=== PATIENT | female | born 1960 | race African-American/Black ===

== ENCOUNTER 2016-08-06 18:58 | Observation (INO) | payer MEDICARE, OTHER ==
[~2016-08-06] VITALS: Ht 162.6 cm; Wt 115.0 kg
[~2016-08-06 18:58] MED LIST: ADULT ASA81 MG OR; ADVAIR DISKU INH; ALL DAY10 MG PO; ALLEGRA180 MG PO; AMARYL2 MG OR; AMBIEN10 MG PO; AMBIEN5 MG OR; AMLODIPINE10 MG PO; AMOXICILLIN875 MG PO; ASPIR-8181 MG OR; ASPIRIN EC81 MG PO; ASPIRIN81 MG OR; AUGMENTIN250 MG PO; AUGMENTIN500TAB PO; AZATHIOPRINE50 MG; CARISOPRODOL350 MG PO; CIPRO500 MG PO; CLONIDINE HCL0.2 MG PO; CLONIDINE0.2 MG OR; COREG12.5 MG OR; COREG25 MG OR; COUMADIN5 MG PO; CYMBALTA60 MG OR; CYMBALTA60 MG PO; DAILY-VITE1 TAB PO; DECADRON2 MG OR; DEXAMETHASON4 MG OR; DILAUDID 2MG2 MG/TAB OR; DILAUDID4 MG OR; DURAGESIC75 MCG/HR TD; ENALAPRIL20 MG OR; FLONASE NASAL50 MCG; FLOXIN OTIC OT; FOLIC ACID1 MG PO; HISTORIAN; LASIX; LASIX 80 MG TAB80 MG OR; LASIX40 MG OR; LASIX80 MG OR; LOPRESSOR100 MG OR; LORTAB 10 OR; LORTAB 5 OR; LORTAB5 OR; LORTAB5 PO; LYRICA75 MG OR; Levaquin PO; MEDDOSEPAK PO; METOPROLOL50 MG OR; MIDODRINE HCL10 MG PO; MINOXIDIL10 MG OR; NEURONTIN300 MG OR; NIFEDIPINE30 M1 OR; NIFEDIPINE90 MG OR; NITRO-DUR0.4 MG/HR TD; NITROQUICK0.4 MG SL; NORVASC10 M1 PO; NORVASC10 MG OR; OXYCOD/APAP1 TA4 PO; OXYCODONE10 M2 OR; OXYGEN; OXYGEN NAS; PATANOL0.1 % OP; PENICILLN VK500 MG OR; PERCOCET 5/325M1 TAB OR; PERCOCET1 TA4 PO; PLAVIX75 MG OR; PROCARDIA XL90 MG OR; PROVENTIL INH17 GM IN; PROVENTIL0.083 % IN; RANITIDINE150 MG PO; RENAGEL 800MG800 MG PO; RENAGEL800 MG OR; RENAL OR; SINGULAIR OR; SOMA350 MG OR; TRAMADOL HCL50 MG PO; ULTRAM50 MG OR; VITAMIN D2000 UNI2 PO; XANAX0.5 MG OR; XANAX2 MG OR; XANAX2 MG PO; ZITHROMAX250 MG OR; ZOLPIDEM10 MG PO; [UNRECOGNIZED DRUG - OTHER] OR; [UNRECOGNIZED DRUG - OTHER] OR; [UNRECOGNIZED DRUG - REMARK]; dilaudid OR
--- NOTE | 2016-08-06 19:05 | NUR ---
PT TO ROOM 13 VIA WHEELCHAIR.
[2016-08-06 20:16] LABS: HEMATOCRIT 36.4 % (37.0-47.0); HEMOGLOBIN 11.6 g/dl (12.0-16.0); IMMATURE GRANULOCYTES 0.2 % (0.0-1.0); MEAN CELL VOLUME 98.1 fL CALC (80.0-100.0); MEAN CORPUSCULAR HGB 31.3 pG CALC (26.0-32.0); MEAN CORPUSCULAR HGB CONC 31.9 g/L CALC (32.0-36.0); NEUT# 1.88 thou/uL (2.00-7.15); RED BLOOD COUNT 3.71 mill/uL (4.20-5.60); RED CELL DISTRI WIDTH 15.1 % (11.5-15.5)
[2016-08-06 20:36] LABS: ALBUMIN 4.1 g/dL (3.2-5.0); BILIRUBIN, TOTAL 0.8 mg/dL (0.0-1.4); CALCIUM 9.3 mg/dL (8.4-10.2); CREATININE 4.7 mg/dL (0.5-1.0); POTASSIUM 4.2 mmol/l (3.5-5.1); TOTAL PROTEIN 8.5 g/dL (6.3-8.2)
--- NOTE | 2016-08-06 20:50 | NUR ---
REMAINS A/O X3 ADVISED OF PENDING DX STUDIES.PT IS CALLING VARIOUS FAMILY AND FRIENDS ON HER CELL PHONE AND IN NO DISTRESS.
[2016-08-06 21:35] LABS: INTERNATIONAL NORMALIZED RATIO 0.9 RATIO (0.7-1.3); PROTHROMBIN TIME 10.1 SECONDS (9.0-12.5)
--- NOTE | 2016-08-06 22:10 | NUR ---
REPORT TO NURSE MAYORGA
--- NOTE | 2016-08-06 22:32 | NUR ---
TO FLOOR VIA STRETCHER PT REMAINS A/OX3
--- NOTE | 2016-08-06 22:37 | NUR ---
DR Argueta INFORMED OF PHARM RECOMMENDATION FOR LOVENOX DOSAGE
[2016-08-06 22:50] VITALS: BP 93/61
--- NOTE | 2016-08-06 22:50 | NUR ---
RECEIVED FROM ER VIA STRETCHER ACCOMPANIED BY BELA RN. TRANSFERRING SELF FROM STRETCHER TO BED WITH ASSISTANCE, STATES "I CANT GET UP" ADMITS TO USING WALKER AT HOME AND BEING DISCHARGED FROM [facility] IN [place] ON Saturday08/05/16, LIVES BY HERSELF. IV SITE FROM A DIFFERENT FACILYTY TO RW, PT STATES IT IS USED FOR [place] IV ABT TRANSFUSION BY [facility] NURSE, AND WAS SENT TO THE ER DUE TO PERIPHERAL SITE BEING OCCLUDED. ER NURSE BELA RN STATES SITE WAS INSTILLED WITH CATHFLOW. DIALYSIS CATHETER TO LEFT SUBCLAVIAN. IV SITE #22 TO LEFT WRIST WITH 1/2NS STARTED AT 50CC/HR. A/O X3, RESPIRATIONS EVEN AND UNLABORED ON O2 @2L VIA NC, PT STATES SHE USES OXYGEN AT 2L VIA NC AT HOME AT . IS A POOR HYSTORIAN, NOT ABLE TO SAY REASON FOR IV ABT'S. DRESSING TO LEFT UPPER THIGH REMOVED TO OBTAIN PICTURES REFUSES TO HAVE PACKING REMOVED FROM OPEN AREA, TWO SITES TO SURROUNDING SKIN NOTED TO HAVE SUTURES, PT STATES REASON FOR WOUND IS DUE TO "DIALYSIS PORT BURST IN APRIL" THEN SENT TO REHAB FOR 30DAYS. SKIN TO FEET IS DRY AND SCALY. ORIENTED TO BED CONTROLS AND CALL LIGHT. PO FLUIDS IN REACH.
--- NOTE | 2016-08-07 00:39 | NUR ---
C/O PAIN TO RIGHT HIP 11/01, MEDICATED WITH DILAUDID 1MG IV X1 AND RESTORIL 30MG PO PER 'S ORDERS.
[2016-08-07 05:30] VITALS: BP 109/76
--- NOTE | 2016-08-07 05:30 | NUR ---
MORNING BLOOD WORK DRAWN BY WAREHOUSE ATTENDANT, [employer].
[2016-08-07 06:20] LABS: HEMATOCRIT 31.7 % (37.0-47.0); HEMOGLOBIN 9.9 g/dl (12.0-16.0); IMMATURE GRANULOCYTES 0.3 % (0.0-1.0); MEAN CELL VOLUME 101.3 fL CALC (80.0-100.0); MEAN CORPUSCULAR HGB 31.6 pG CALC (26.0-32.0); MEAN CORPUSCULAR HGB CONC 31.2 g/L CALC (32.0-36.0); NEUT# 1.25 thou/uL (2.00-7.15); RED BLOOD COUNT 3.13 mill/uL (4.20-5.60); RED CELL DISTRI WIDTH 15.2 % (11.5-15.5)
[2016-08-07 06:37] LABS: ALBUMIN 3.6 g/dL (3.2-5.0); BILIRUBIN, TOTAL 0.8 mg/dL (0.0-1.4); CALCIUM 9.1 mg/dL (8.4-10.2); POTASSIUM 4.5 mmol/l (3.5-5.1); TOTAL PROTEIN 7.1 g/dL (6.3-8.2)
[2016-08-07 06:39] LABS: INTERNATIONAL NORMALIZED RATIO 0.9 RATIO (0.7-1.3); PROTHROMBIN TIME 10.1 SECONDS (9.0-12.5)
[2016-08-07 06:51] LABS: CREATININE 5.9 mg/dL (0.5-1.0)
--- NOTE | 2016-08-07 07:00 | NUR ---
REPORT RECIEVED FROM ZOLTAN MAYORGA; PT RESTING IN BED PEACEFULLY; C/O PAIN RATING 10 OUT OF 10 WITH NO VISIBLE DISTRESS NOTED; IVF INFUSING AT PRESCRIBED RATE; WILL MEDICATE WHEN MEDICATIONS AVAILABLE
[2016-08-07 07:49] VITALS: BP 81/40
--- NOTE | 2016-08-07 11:28 | NUR ---
PT SITTING UP IN BED; NO S/S OF DISTRESS NOTED; PT STATES PAIN IS IMPROVED AT THIS TIME; FAMILY AT BEDSIDE; IVF INFUSING AT PRESCRIBED RATE; CALL LIGHT WITHIN REACH; WILL CONTINUE TO MONITOR
--- NOTE | 2016-08-07 16:00 | NUR ---
PT RESTING IN BED WITH EYES CLOSED; NO S/S OF DISTRESS NOTED; FALL PRECAUTIONS IN PLACE; CALL LIGHT WITHIN REACH; WILL CONTINUE TO MONITOR
[2016-08-07 16:20] VITALS: BP 110/51
[2016-08-07 20:05] VITALS: BP 101/62
--- NOTE | 2016-08-07 21:09 | NUR ---
NOTIFED OF PT REQUEST FROM PAIN MEDICATION FOR RT HIP AND RT.FLANK PAIN;NEW ORDERS RECEIVED AT THIS TIME
--- NOTE | 2016-08-07 22:20 | NUR ---
PT RESTING IN SEMI FOWLERS POSITION;PT STATES THAT SINCE HER FRIEND LEFT SHE IS READY FOR HER PAIN MEDICATION AND SLEEPING MEDICATION;IV SITE TO LEFT WRIST AND MEDLINE TO RT WRIST FLUSHED AND PATENT;PT ON CONTACT PRECAUTIONS FOR ESBL OF THE INNER LEFT GROIN;PRIOR FISTULA FROM DIALYSIS REMOVED LAST WEEK;PT REFUSES DRESSING CHANGE AT THIS TIME;ASSESSMENT COMPLETED;GENERALIZED DRY SKIN NOTED THROUGHOUT;PT DENIES ANY OTHER NEEDS;SAFETY PRECAUTIONS REINFORCED;BED IN LOWEST POSITION WITH CALL LIGHT IN REACH;WILL CONTINUE TO MONITOR
--- NOTE | 2016-08-08 00:15 | NUR ---
PT RESTING IN HIGH FOWLERS POSITION;PT STATES THAT PAIN IS BETTER;RESPIRATIONS EVEN AND UNLABORED ON 02 @ 2 LITERS VIA NC;FALL AND CONTACT PRECAUTIONS IN PLACE;PT DENIES ANY NEEDS AT THIS TIME;CALL LIGHT WITHIN REACH;WILL CONTINUE TO MONITOR
[2016-08-08 04:55] VITALS: BP 88/52
--- NOTE | 2016-08-08 04:55 | NUR ---
PT APPEARS TO BE SLEEPING AT THIS TIME;WOKE PT TO OBTAIN VS;PT DENIES ANY PAIN OR DISCOMFORTS;RESPIRATIONS EVEN AND UNLABORED ON 02 @ 2 LITERS VIA NC;PT DENIES ANY NEEDS;CONTACT PRECAUTIONS IN PLACE;BED IN LOWEST POSITION WITH CALL LIGHT IN REACH;WILL CONTINUE TO MONITOR
--- NOTE | 2016-08-08 07:00 | NUR ---
RECEIVED BEDSIDE REPORT FROM ZANE CHARLTON. RESPS EVEN AND UNLABORED ON O2 VIA NC. PT REPORTS SHE NEEDS TO GO TO DIALYSIS TODAY. DENIES PAIN OR DISCOMFORT. PLAN OF CARE DISCUSSED. SAFETY PRECAUTIONS REINFORCED. BED IN LOWEST POSITION WITH WHEELS LOCKED. CALL LIGHT WIHTIN REACH. ENCOURAGED PT TO CALL FOR ANY NEEDS.
--- NOTE | 2016-08-08 08:00 | NUR ---
DR BANERJEE IN TO SEE PT, NEW ORDERS RECEIVED.
[2016-08-08 08:26] VITALS: BP 98/64
[2016-08-08 10:20] VITALS: BP 98/64
--- NOTE | 2016-08-08 12:01 | NUR ---
NURSE TO NURSE REPORT CALLED TO XI VALE AT [facility].
--- NOTE | 2016-08-08 12:45 | NUR ---
Discharge instructions given. Patient verbalizes understanding of same. Discharged in stable condition via Medical Transport to *Other with *Other. All belongings sent with pt. TO [facility]SP[facility]
== END 2016-08-08 12:44 ==
LOC: ED 18:58 → ED-I 19:25 → ED 21:20 → MS2 21:21
PROVIDERS: Emergency Medicine; ADMIT Internal Medicine Geriatric Medicine; ATTEND Internal Medicine Geriatric Medicine
DX: K75.9 Inflammatory liver disease, unspecified (principal); K82.8 Other specified diseases of gallbladder; K83.9 Disease of biliary tract, unspecified; T82.7XXA Infection and inflammatory reaction due to other cardiac and vascular devices, implants and grafts, initial encounter; E11.22 Type 2 diabetes mellitus with diabetic chronic kidney disease; I13.2 Hypertensive heart and chronic kidney disease with heart failure and with stage 5 chronic kidney disease, or end stage renal disease; F17.210 Nicotine dependence, cigarettes, uncomplicated; N18.6 End stage renal disease; I50.9 Heart failure, unspecified; Z99.2 Dependence on renal dialysis; J45.909 Unspecified asthma, uncomplicated; R10.2 Pelvic and perineal pain; R07.9 Chest pain, unspecified; G89.29 Other chronic pain; R42 Dizziness and giddiness; Y83.2 Surgical operation with anastomosis, bypass or graft as the cause of abnormal reaction of the patient, or of later complication, without mention of misadventure at the time of the procedure; Z87.440 Personal history of urinary (tract) infections; Z86.73 Personal history of transient ischemic attack (TIA), and cerebral infarction without residual deficits
CPT/HCPCS: J1335; J2997

== ENCOUNTER 2016-12-03 18:18 | Emergency (ER) | payer MEDICARE, OTHER ==
[~2016-12-03] VITALS: Ht 162.6 cm; Wt 119.0 kg
[2016-12-03] MEDS ORDERED: MIDODRINE10 MG PO (18:51)
[2016-12-03 20:36] LABS: HEMATOCRIT 42.6 % (37.0-47.0); HEMOGLOBIN 13.6 g/dl (12.0-16.0); IMMATURE GRANULOCYTES 0.2 % (0.0-1.0); MEAN CELL VOLUME 98.4 fL CALC (80.0-100.0); MEAN CORPUSCULAR HGB 31.4 pG CALC (26.0-32.0); MEAN CORPUSCULAR HGB CONC 31.9 g/L CALC (32.0-36.0); NEUT# 2.71 thou/uL (2.00-7.15); RED BLOOD COUNT 4.33 mill/uL (4.20-5.60); RED CELL DISTRI WIDTH 14.3 % (11.5-15.5)
[2016-12-04 06:38] VITALS: BP 126/65
== END 2016-12-04 03:25 ==
LOC: ED 18:18
PROVIDERS: Emergency Medicine
DX: R07.9 Chest pain, unspecified (principal); J45.909 Unspecified asthma, uncomplicated; E11.22 Type 2 diabetes mellitus with diabetic chronic kidney disease; I12.0 Hypertensive chronic kidney disease with stage 5 chronic kidney disease or end stage renal disease; N18.6 End stage renal disease; F17.210 Nicotine dependence, cigarettes, uncomplicated; Z99.2 Dependence on renal dialysis; Z86.73 Personal history of transient ischemic attack (TIA), and cerebral infarction without residual deficits

== ENCOUNTER 2017-01-09 12:36 | Emergency (ER) | payer MEDICARE, OTHER ==
[~2017-01-09] VITALS: Ht 162.6 cm; Wt 113.0 kg
[~2017-01-09 12:36] MED LIST changes: +MIDODRINE10 MG PO
[2017-01-09 13:51] LABS: HEMATOCRIT 41.1 % (37.0-47.0); HEMOGLOBIN 13.7 g/dl (12.0-16.0); IMMATURE GRANULOCYTES 0.5 % (0.0-1.0); MEAN CELL VOLUME 96.5 fL CALC (80.0-100.0); MEAN CORPUSCULAR HGB 32.2 pG CALC (26.0-32.0); MEAN CORPUSCULAR HGB CONC 33.3 g/L CALC (32.0-36.0); NEUT# 3.75 thou/uL (2.00-7.15); RED BLOOD COUNT 4.26 mill/uL (4.20-5.60); RED CELL DISTRI WIDTH 14.6 % (11.5-15.5)
[2017-01-09 14:25] LABS: ALBUMIN 4.3 g/dL (3.2-5.0); BILIRUBIN, TOTAL 0.7 mg/dL (0.0-1.4); CALCIUM 9.5 mg/dL (8.4-10.2); POTASSIUM 4.3 mmol/l (3.5-5.1); TOTAL PROTEIN 8.1 g/dL (6.3-8.2)
[2017-01-09 14:31] LABS: CREATININE 6.5 mg/dL (0.5-1.0)
[2017-01-09] MEDS ORDERED: PERCOCET 10/31 COMBO PO (14:40)
[2017-01-09] MEDS ORDERED: TYLENOL 500MG TAB PO (14:40)
[2017-01-09 15:22] VITALS: BP 100/56
== END 2017-01-09 15:45 | disposition left against medical advice (07) ==
LOC: ED 12:36
PROVIDERS: Emergency Medicine
DX: R42 Dizziness and giddiness (principal); R55 Syncope and collapse; R07.9 Chest pain, unspecified; I95.9 Hypotension, unspecified; J45.909 Unspecified asthma, uncomplicated; E11.22 Type 2 diabetes mellitus with diabetic chronic kidney disease; I13.2 Hypertensive heart and chronic kidney disease with heart failure and with stage 5 chronic kidney disease, or end stage renal disease; N18.6 End stage renal disease; I50.9 Heart failure, unspecified; F17.210 Nicotine dependence, cigarettes, uncomplicated; Z99.2 Dependence on renal dialysis; Z86.73 Personal history of transient ischemic attack (TIA), and cerebral infarction without residual deficits; Z91.19 Patient's noncompliance with other medical treatment and regimen

== ENCOUNTER 2017-07-08 16:40 | Inpatient (IN) | payer MEDICARE, OTHER ==
[~2017-07-08] VITALS: Ht 162.6 cm; Wt 127.0 kg
[~2017-07-08 16:40] MED LIST changes: +PERCOCET 10/31 COMBO PO; +TYLENOL 500MG TAB PO
--- NOTE | 2017-07-08 17:05 | NUR ---
PATIENT TO ROOM VIA EMS AND PHYSICIAN AT BEDSIDE FOR EVAL
[2017-07-08 17:56] LABS: HEMATOCRIT 40.8 % (37.0-47.0); HEMOGLOBIN 13.3 g/dl (12.0-16.0); IMMATURE GRANULOCYTES 0.3 % (0.0-1.0); MEAN CELL VOLUME 98.3 fL CALC (80.0-100.0); MEAN CORPUSCULAR HGB CONC 32.6 g/L CALC (32.0-36.0); NEUT# 4.51 thou/uL (2.00-7.15); RED BLOOD COUNT 4.15 mill/uL (4.20-5.60); RED CELL DISTRI WIDTH 15.9 % (11.5-15.5)
--- NOTE | 2017-07-08 18:13 | NUR ---
PATIENT UNABLE TO TAKE MORPHINE, REPORTS BODYACHES. REFUSED MEDICATION. MD INFORMED, NO FURTHER ORDERS FROM . WILL CONTINUE TO MONITOR.
[2017-07-08 18:29] LABS: INTERNATIONAL NORMALIZED RATIO 2.5 RATIO (0.7-1.3); PROTHROMBIN TIME 28.3 SECONDS (9.0-12.5)
--- NOTE | 2017-07-08 18:36 | NUR ---
PATIENT REPOSITIONED ON RIGHT SIDE WITH PILLOW UNDER LEGS. WARM BLANKET GIVEN.
--- NOTE | 2017-07-08 18:51 | NUR ---
BEDSIDE REPORT GIVEN TO KAVIN SALDANA. CARE RELINQUISHED.
--- NOTE | 2017-07-08 18:55 | NUR ---
report recieved from Piper VALE @ bedside.
--- NOTE | 2017-07-08 19:31 | NUR ---
Pt medicated with Xanax 2 mg p.o., advised pt that will return in 5 minutes to evaluate condition and possibly give ordered morphine for pain.
[2017-07-08 19:55] LABS: POTASSIUM 3.9 mmol/l (3.5-5.1)
[2017-07-08 19:57] LABS: CREATININE 7.1 mg/dL (0.5-1.0)
--- NOTE | 2017-07-08 19:58 | NUR ---
Pt medicated with Percocet
--- NOTE | 2017-07-08 20:13 | NUR ---
RECHECK OF PT. STATES THAT SHE IS STILL HAVING SOME PAIN. SEEMS TO BE RESTING COMFORTABLY AT THIS TIME.
[2017-07-08 21:35] VITALS: BP 102/68
--- NOTE | 2017-07-08 21:44 | NUR ---
transported to floor with tele box on to room 290.
--- NOTE | 2017-07-08 22:00 | NUR ---
PATIENT ADMITTED FROM ER VIA STRETCHER WITH ER STAFF IN ATTENDANCE. PATIENT STATES THAT SHE IS NOT ABLE TO STAND. PATIENT MAX ASSIST FROM STRETCHER TO BED. PATIENT IS AWAKE ALERT AND ORIENTED, ANXIOUS-STATES THAT SHE IS STILL IN SEVERE PAIN- GENERALIZED PAIN NIKO HIPS AND FEET. PATIENT IS ESRD PATIENT CURRENTLY ON H/D AND HAD TREATMENT DONE TODAY. AFTER GOING HOME FROM DAILYSIS PATIENT STATES THAT SHE WAS HAVING SEVERE PAIN TO BOTH HIPS AND BLE AND CALLED 911. PATIENT STATES THAT SHE LIVES WITH FAMILY. PATIENT WITH EXT DIALYSIS CATH TO LEFT UPPER CHEST. PATIENT STATES THAT SHE HAS HAD SEVERAL AV FISTULA'S THAT HAVE GONE BAD. SKIN IS VERY DRY AND FLAKEY. HEP LOCK TO RIGHT WRIST INTACT. DIFFICULTY IN OBTAINING BP-FINALLY DONE TO RIGHT LE-102/68. O2 APPLIED AT 2LPM VIA NASAL CANNULA-STATES THAT SHE DOES USE O2 AT HOME. PATIENT ALSO C/O CONSTIPATION-NO BM IN 5-6 DAYS. ABD IS VERY LARGE AND SOFT-BS PRESENT. STATES THAT SHE RARELY HAS ANY URINE. ORIENTED TO ROOM AND SURROUNDINGS. INSTRUCTED ON USE OF NURSE CALL LIGHT SYSTEM AND TV REMOTE. BOTH FEET ELEVATED ON PILLOWS FOR COMFORT. CALL LIGHT IN REACH. WILL CONT TO MONITOR.
--- NOTE | 2017-07-08 23:15 | NUR ---
PATIENT RESTING IN BED EATING SNACK AND JUICE PROVIDED. ACCU-CHECK PRIOR TO FOOD WAS 121. PATIENT MEDICATED FOR SLEEP WITH DILAUDID 0.5MG IVP FOR PAIN AND WITH SONATA 5MG PO FOR SLEEP. PATIENT SEEMS TO BE CALMING DOWN AT THIS TIME. SAFETY PRECAUTIONS REINFORCED. CALL LIGHT IN REACH.
[2017-07-09] VITALS (8 sets, daily range): BP systolic 73–109; BP diastolic 38–58
--- NOTE | 2017-07-09 | NUR ---
PATIENT WITH SOME RELIEF FROM PAIN MEDS GIVEN EARLIER-8/10 ON PAIN SCALE. TROP DRAWN DRAWN ORDERED. WATCHING TV AT THIS TIME. CALL LIGHT IN REACH. WILL CONT TO MONITOR.
[2017-07-09 06:08] LABS: HEMATOCRIT 36.1 % (37.0-47.0); HEMOGLOBIN 11.6 g/dl (12.0-16.0); IMMATURE GRANULOCYTES 0.3 % (0.0-1.0); MEAN CELL VOLUME 101.4 fL CALC (80.0-100.0); MEAN CORPUSCULAR HGB 32.6 pG CALC (26.0-32.0); MEAN CORPUSCULAR HGB CONC 32.1 g/L CALC (32.0-36.0); NEUT# 3.82 thou/uL (2.00-7.15); RED BLOOD COUNT 3.56 mill/uL (4.20-5.60); RED CELL DISTRI WIDTH 16.1 % (11.5-15.5)
[2017-07-09 06:17] LABS: POTASSIUM 4.7 mmol/l (3.5-5.1)
[2017-07-09 06:20] LABS: CREATININE 8.4 mg/dL (0.5-1.0)
[2017-07-09 06:21] LABS: INTERNATIONAL NORMALIZED RATIO 2.5 RATIO (0.7-1.3); PROTHROMBIN TIME 28.9 SECONDS (9.0-12.5)
--- NOTE | 2017-07-09 06:24 | NUR ---
RECIEVED CALL FROM [facility] IN THE LAB-CREAT-8.4. PATIENT ESRD PATIENT THAT HAD H/D YESTERDAY. AWARE OF PATIENT STATUS
--- NOTE | 2017-07-09 07:00 | NUR ---
BEDSIDE REPORT RECEIVED BY LINDA. PT IS RESTING IN BED WITH NO S/S OF DISTRESS NOTED. PT DENIES NEEDS AT THIS TIME. CALL LIGHT IN REACH.
--- NOTE | 2017-07-09 08:00 | NUR ---
ASSESSMENT DONE. LUNG SOUND CLEAR/DIMINISHED. O2 AT 2L/MIN VIA NC. # 20 RW THAT APPEAR HEALTHY. PT DENIES NEEDS AT THIS TIME. SAFETY PRECAUTIONS REINFORCED AND CALL LIGHT IN REACH.
--- NOTE | 2017-07-09 12:02 | NUR ---
PT IS SEMI FOWLERS IN BED WITH NO S/S OF DISTRESS NOTED. PT IS VISITING WITH FAMILY IN ROOM. PT DENIES NEEDS AT THIS TIME. CALL LIGHT IN REACH.
--- NOTE | 2017-07-09 14:21 | NUR ---
MEDICATED PT FOR PAIN SEE EMAR. ELEVATED PT LEGS IN PILLOWS. PT DENIES ANY OTHER NEEDS AT THIS TIME. CALL LIGHT IN REACH.
--- NOTE | 2017-07-09 16:00 | NUR ---
O2 2L/MIN VIA NC AND TELE IN PLACE. PT IS RESTING IN BED WITH NO S/S OF DISTRESS NOTED. PT DENIES NEEDS AT THIS TIME. CALL LIGHT IN REACH.
--- NOTE | 2017-07-09 17:27 | NUR ---
[facility] SAWYER RELAYED CONCERNS REGARDING PT'S CAPABILITY OF PARTICIPATING IN THERAPY AT THE LEVEL REQUIRED FOR THEIR FACILITY. ASKS TO BE NOTIFIED IF ANYTHING CHANGES REGARDING PT AND SHE MAY BE RE-EVALUATED.
--- NOTE | 2017-07-09 19:40 | NUR ---
PT RESTING IN BED. FAMILY IN ROOM. PT IS ALERT AND ORIENTED X3. PERRLA. RESP ARE EVEN AND UNLABORED. NO DISTRESS NOTED. LUNGS ARE CLEAR AND DIMINISHED THROUGHOUT. TELE IN PLACE. HR REGULAR. PULSES PALPABLE THROUGHOUT. BS ACTIVE. #20 RIGHT WRIST. SALINE LOCKED. NO REDNESS OR EDEMA NOTED. CALL LIGHT IN REACH. WILL CONTINUE TO MONITOR
--- NOTE | 2017-07-10 | NUR ---
PT RESTING IN BED WITH EYES CLOSED. RESP ARE EVEN AND UNLABORED. NO DISTRESS NOTED. GRANDDAUGHTER IN ROOM. CALL LIGHT IN REACH. WILL CONTINUE TO MONITOR
[2017-07-10 00:30] VITALS: BP 79/52
--- NOTE | 2017-07-10 04:13 | NUR ---
lab into draw am labs. resp are even and unlabored. no distress noted. call light in reach. will continue to monitor
[2017-07-10 04:30] VITALS: BP 91/57
[2017-07-10 05:34] LABS: MAGNESIUM 1.9 mg/dL (1.6-2.3)
[2017-07-10 05:44] LABS: CREATININE 10.4 mg/dL (0.5-1.0)
[2017-07-10 05:49] LABS: HEMATOCRIT 36.6 % (37.0-47.0); HEMOGLOBIN 11.7 g/dl (12.0-16.0); IMMATURE GRANULOCYTES 0.2 % (0.0-1.0); MEAN CELL VOLUME 103.1 fL CALC (80.0-100.0); NEUT# 2.69 thou/uL (2.00-7.15); RED BLOOD COUNT 3.55 mill/uL (4.20-5.60); RED CELL DISTRI WIDTH 15.9 % (11.5-15.5)
[2017-07-10 05:50] LABS: INTERNATIONAL NORMALIZED RATIO 2.5 RATIO (0.7-1.3); PROTHROMBIN TIME 28.2 SECONDS (9.0-12.5)
--- NOTE | 2017-07-10 06:55 | NUR ---
REPORT RECEIVED FROM KAVIN MERINO;PT RESTING IN HIGH FOWLERS POSITION;INTRODUCED SELF TO PT AND POC DISCUSSED;RESPIRATIONS EVEN AND UNLABORED ON 02 @ 2L VIA NC,PT IS NOTED TO BE HOME DEPENDENT;DENIES ANY PAIN OR DISCOMFORTS;TELE MONITOR IN PLACE;ENCOURAGED TO EXPRESS NEEDS AND CONCERNS;CONTACT PRECAUTIONS IN PLACE FOR HX OF MRSA;FALL PRECAUTIONS;CALL LIGHT IN REACH;WILL CONTINUE TO MONITOR
[2017-07-10 07:53] VITALS: BP 100/50
--- NOTE | 2017-07-10 08:00 | NUR ---
PT RESTING IN SEMI FOWLERS POSITION WITH FAMILY AT BEDSIDE;VS OBTAINED AND ASSESSMENT COMPLETED;RESPIRATIONS EVEN AND UNLABORED ON OXYGEN @ 2L VIA NC,PT IS HOME DEPENDENT;ABDOMEN SOFT ON PALPATION AND ACTIVE IN ALL 4 QUADRANTS;WEAK PEDAL PULSES;SKIN INTACT;#20G TO RIGHT WRIST FLUSHED AND PATENT,SITE APPEARS HEALTHY;PT COMPLAINS OF BILATERAL LEG PAIN RATING 8/10 ON THE PAIN SCALE;PT TO BE MEDICATED PER MD ORDERS;CONTACT PRECAUTIONS REMAIN IN PLACE FOR HX OF MRSA;ALL SAFETY PRECAUTIONS REINFORCED WITH BED IN THE LOWEST POSITION;CALL LIGHT IN REACH;WILL CONTINUE TO MONITOR
--- NOTE | 2017-07-10 08:20 | NUR ---
PT AMBULATED WITH 3 PERSON ASSIST AND WEAK GAIT TO BEDSIDE COMMODE
[2017-07-10] MEDS ORDERED: PANTOPRAZOLE SO40 M1 PO (08:45)
--- NOTE | 2017-07-10 09:47 | NUR ---
PT WAS SEEN RESTING IN THE BED. STATES THAT SHE COULD NOT PARTICIPATE WITH THERAPY TODAY HER PAIN WAS INTOLERABLE AND MOVING MAKES IT WORSE. ALSO DECLINED PROM ACTIVITIES.
[2017-07-10 11:00] VITALS: BP 78/34
--- NOTE | 2017-07-10 11:00 | NUR ---
PT RESTING IN SUPINE POSITION WITH MIRIAM,CASE MANAGEMENT AT BEDSIDE;PT AND CHIKI DISCUSSED TRANSFER TO [facility];ALL QUESTIONS ANSWERED AND RE-ASSURANCE PROVIDED;PT DENIES ANY CURRENT NEEDS;ENCOURAGED TO CALL FOR ASSISTANCE IF NEEDED;CALL LIGHT IN REACH;WILL CONTINUE TO MONITOR
--- NOTE | 2017-07-10 11:35 | NUR ---
PT LEFT VIA STRETCHER ACCOMPANIED BY [facility] STAFF TO [facility]
--- NOTE | 2017-07-10 12:05 | NUR ---
REPORT CALLED TO KAVIN HOFFMANN;PT TO BE TRANSFERRED TO ROOM 305 BED 1
== END 2017-07-10 11:38 | DRG 314 ==
LOC: ED 16:40 → ED-I 20:10 → ED 20:27 → MS2 20:28 → UNDODEPER 21:27 → MS2 07-09 10:18
PROVIDERS: Family Medicine; Nurse Practitioner Family; ADMIT Internal Medicine; ATTEND Internal Medicine
DX: I95.9 Hypotension, unspecified (principal); N18.6 End stage renal disease; I13.2 Hypertensive heart and chronic kidney disease with heart failure and with stage 5 chronic kidney disease, or end stage renal disease; E11.22 Type 2 diabetes mellitus with diabetic chronic kidney disease; Z68.42 Body mass index [BMI] 45.0-49.9, adult; R07.9 Chest pain, unspecified; I50.9 Heart failure, unspecified; F17.210 Nicotine dependence, cigarettes, uncomplicated; M54.9 Dorsalgia, unspecified; M19.90 Unspecified osteoarthritis, unspecified site; J44.9 Chronic obstructive pulmonary disease, unspecified; G89.4 Chronic pain syndrome; R53.1 Weakness; K59.09 Other constipation; F41.9 Anxiety disorder, unspecified; Z99.2 Dependence on renal dialysis; Z79.01 Long term (current) use of anticoagulants; Z86.73 Personal history of transient ischemic attack (TIA), and cerebral infarction without residual deficits
CPT/HCPCS: G0378

== ENCOUNTER 2017-08-19 17:27 | Emergency (ER) | payer MEDICARE, OTHER ==
[~2017-08-19] VITALS: Ht 162.6 cm; Wt 126.8 kg
[~2017-08-19 17:27] MED LIST changes: +PANTOPRAZOLE SO40 M1 PO
[2017-08-19 20:59] VITALS: BP 92/49
== END 2017-08-19 21:15 | disposition home or self-care (01) ==
LOC: ED 17:27
DX: L89.899 Pressure ulcer of other site, unspecified stage (principal); Z99.3 Dependence on wheelchair; E11.9 Type 2 diabetes mellitus without complications; I10 Essential (primary) hypertension; Z86.73 Personal history of transient ischemic attack (TIA), and cerebral infarction without residual deficits; E66.9 Obesity, unspecified

== ENCOUNTER 2017-10-02 14:20 | Emergency (ER) | payer MEDICARE, OTHER ==
[~2017-10-02] VITALS: Ht 162.6 cm; Wt 116.8 kg
[2017-10-02] MEDS ORDERED: RENAGEL 800MG800 MG PO ×2 (14:53)
[2017-10-02] MEDS ORDERED: SERTRALINE50 MG PO (14:54)
[2017-10-02 15:20] LABS: HEMATOCRIT 27.3 % (37.0-47.0); HEMOGLOBIN 8.7 g/dl (12.0-16.0); IMMATURE GRANULOCYTES 0.3 % (0.0-1.0); MEAN CELL VOLUME 95.1 fL CALC (80.0-100.0); MEAN CORPUSCULAR HGB 30.3 pG CALC (26.0-32.0); MEAN CORPUSCULAR HGB CONC 31.9 g/L CALC (32.0-36.0); NEUT# 5.43 thou/uL (2.00-7.15); RED BLOOD COUNT 2.87 mill/uL (4.20-5.60); RED CELL DISTRI WIDTH 15.9 % (11.5-15.5)
[2017-10-02 15:38] LABS: ALBUMIN 3.6 g/dL (3.2-5.0); BILIRUBIN, TOTAL 0.5 mg/dL (0.0-1.4); TOTAL PROTEIN 7.4 g/dL (6.3-8.2)
[2017-10-02 15:39] LABS: CREATININE 3.6 mg/dL (0.5-1.0); POTASSIUM 3.6 mmol/l (3.5-5.1)
[2017-10-02 16:12] LABS: INTERNATIONAL NORMALIZED RATIO > 11.0 RATIO (0.7-1.3); PROTHROMBIN TIME > 130.0 SECONDS (9.0-12.5)
[2017-10-02 17:46] VITALS: BP 121/81
[2017-10-02 18:06] VITALS: BP 115/78
[2017-10-02 18:40] VITALS: BP 141/91
[2017-10-02 20:42] VITALS: BP 141/91
== END 2017-10-02 20:42 | disposition short-term general hospital (02) ==
LOC: ED 14:20
PROVIDERS: Family Medicine
PROC: 30233K1 Transfusion of Nonautologous Frozen Plasma into Peripheral Vein, Percutaneous Approach (ICD-10-PCS; principal; 2017-10-02)
PROC: 30233K1 Transfusion of Nonautologous Frozen Plasma into Peripheral Vein, Percutaneous Approach (ICD-10-PCS; 2017-10-02)
DX: R04.2 Hemoptysis (principal); D68.32 Hemorrhagic disorder due to extrinsic circulating anticoagulants; T45.515A Adverse effect of anticoagulants, initial encounter; F17.210 Nicotine dependence, cigarettes, uncomplicated; E11.22 Type 2 diabetes mellitus with diabetic chronic kidney disease; I13.2 Hypertensive heart and chronic kidney disease with heart failure and with stage 5 chronic kidney disease, or end stage renal disease; I50.9 Heart failure, unspecified; N18.6 End stage renal disease; Z99.2 Dependence on renal dialysis; J44.9 Chronic obstructive pulmonary disease, unspecified; Z86.73 Personal history of transient ischemic attack (TIA), and cerebral infarction without residual deficits
CPT/HCPCS: S0164

== ENCOUNTER 2018-04-02 11:49 | Emergency (ER) | payer MEDICARE, OTHER ==
[~2018-04-02] VITALS: Ht 162.6 cm; Wt 115.0 kg
[~2018-04-02 11:49] MED LIST changes: +SERTRALINE50 MG PO
[2018-04-02 13:14] LABS: HEMATOCRIT 31.8 % (37.0-47.0); HEMOGLOBIN 9.7 g/dl (12.0-16.0); IMMATURE GRANULOCYTES 0.3 % (0.0-5.0); MEAN CORPUSCULAR HGB 31.8 pG CALC (26.0-32.0); MEAN CORPUSCULAR HGB CONC 30.5 g/L CALC (32.0-36.0); NEUT# 4.67 thou/uL (2.00-7.15); RED BLOOD COUNT 3.05 mill/uL (4.20-5.60); RED CELL DISTRI WIDTH 15.1 % (11.5-15.5)
[2018-04-02 13:20] LABS: MEAN CELL VOLUME 104.3 fL CALC (80.0-100.0)
[2018-04-02 13:39] LABS: PROTHROMBIN TIME 10.9 SECONDS (9.0-12.5)
[2018-04-02 13:43] LABS: CREATININE 9.9 mg/dL (0.5-1.0)
[2018-04-02 14:25] VITALS: BP 164/87
== END 2018-04-02 14:25 | disposition short-term general hospital (02) ==
LOC: ED 11:49
PROVIDERS: Family Medicine
DX: T82.42XA Displacement of vascular dialysis catheter, initial encounter (principal); R06.02 Shortness of breath; R53.1 Weakness; I12.0 Hypertensive chronic kidney disease with stage 5 chronic kidney disease or end stage renal disease; N18.6 End stage renal disease; Z99.2 Dependence on renal dialysis; F17.200 Nicotine dependence, unspecified, uncomplicated

== ENCOUNTER 2019-04-02 | Emergency (ER) | payer MEDICARE, OTHER ==
[2019-04-02] MEDS ORDERED: BACTRIM DS1 TAB PO (10:07)
[2019-04-02] MEDS ORDERED: TERBINAFINE1 % EX (10:07)
== END 2019-04-02 10:54 | disposition home or self-care (01) ==
DX: B37.2 Candidiasis of skin and nail (principal); E11.22 Type 2 diabetes mellitus with diabetic chronic kidney disease; F17.210 Nicotine dependence, cigarettes, uncomplicated; I50.9 Heart failure, unspecified; N18.6 End stage renal disease; I13.2 Hypertensive heart and chronic kidney disease with heart failure and with stage 5 chronic kidney disease, or end stage renal disease; Z99.2 Dependence on renal dialysis; Z86.73 Personal history of transient ischemic attack (TIA), and cerebral infarction without residual deficits

== ENCOUNTER 2019-04-27 | Emergency (ER) | payer MEDICARE, OTHER ==
[~2019-04-27] MED LIST changes: +BACTRIM DS1 TAB PO; +TERBINAFINE1 % EX
[2019-04-27 18:28] LABS: HEMOGLOBIN 10.5 g/dl (12.0-16.0); MEAN CELL VOLUME 98.8 fL CALC (80.0-100.0); MEAN CORPUSCULAR HGB 31.4 pG CALC (26.0-32.0); MEAN CORPUSCULAR HGB CONC 31.8 g/L CALC (32.0-36.0); NEUT# 6.08 thou/uL (2.00-7.15); RED BLOOD COUNT 3.34 mill/uL (4.20-5.60); RED CELL DISTRI WIDTH 16.8 % (11.5-15.5)
[2019-04-27 18:44] LABS: ALBUMIN 3.8 g/dL (3.2-5.0); POTASSIUM 4.2 mmol/l (3.5-5.1); TOTAL PROTEIN 7.7 g/dL (6.3-8.2)
[2019-04-27 18:47] LABS: CREATININE 7.4 mg/dL (0.5-1.0)
== END 2019-04-27 20:00 ==
PROVIDERS: Family Medicine
DX: L03.317 Cellulitis of buttock (principal); E11.22 Type 2 diabetes mellitus with diabetic chronic kidney disease; I13.2 Hypertensive heart and chronic kidney disease with heart failure and with stage 5 chronic kidney disease, or end stage renal disease; I50.9 Heart failure, unspecified; N18.6 End stage renal disease; F17.210 Nicotine dependence, cigarettes, uncomplicated; Z99.2 Dependence on renal dialysis; Z86.73 Personal history of transient ischemic attack (TIA), and cerebral infarction without residual deficits

== ENCOUNTER 2020-08-14 13:21 | Emergency (ER) | payer MEDICARE, OTHER ==
[~2020-08-14] VITALS: Ht 162.6 cm; Wt 116.0 kg
[2020-08-14 14:19] LABS: HEMATOCRIT 41.4 % (37.0-47.0); HEMOGLOBIN 12.3 g/dl (12.0-16.0); IMMATURE GRANULOCYTES 0.3 % (0.0-5.0); MEAN CORPUSCULAR HGB 28.8 pG CALC (26.0-32.0); MEAN CORPUSCULAR HGB CONC 29.7 g/dL CAL (32.0-36.0); NEUT# 6.18 thou/uL (2.00-7.15); RED BLOOD COUNT 4.27 mill/uL (4.20-5.60); RED CELL DISTRI WIDTH 15.4 % (11.5-15.5)
[2020-08-14 14:45] LABS: ALBUMIN 3.7 g/dL (3.2-5.0); ALKALINE PHOSPHATASE 90 u/l (38-126); BILIRUBIN, TOTAL 0.9 mg/dL (0.0-1.4); CARBON DIOXIDE 16 mmol/l (22-30); CHLORIDE 102 mmol/l (95-108); SGOT/AST 16 u/l (14-36); SODIUM 136 mmol/l (137-146); TOTAL PROTEIN 7.9 g/dL (6.3-8.2)
[2020-08-14 14:49] LABS: INTERNATIONAL NORMALIZED RATIO 1.1 RATIO (0.7-1.3); PROTHROMBIN TIME 10.8 SECONDS (9.0-12.5)
[2020-08-14 15:06] LABS: ANION GAP 24 (6-22 (CALC)); BUN 80 mg/dL (7-17); BUN/CREATININE RATIO 6 (12-20 (CALC)); GFR 3 ML/MIN (>=60 (CALC)); GFR FOR AFR.AMER. 4 ML/MIN (>=60 (CALC))
[2020-08-14 15:07] LABS: CREATININE 12.7 mg/dL (0.5-1.0); POTASSIUM 6.4 mmol/l (3.5-5.1)
[2020-08-14] MEDS ORDERED: ALPRAZOLAM1 MG PO (15:24)
[2020-08-14] MEDS ORDERED: AMBIEN10 MG PO (15:26)
[2020-08-14] MEDS ORDERED: NORVASC2.5 M1 PO (15:27)
[2020-08-14] MEDS ORDERED: LEVETIRACETAM500 M1 PO (15:28)
[2020-08-14] MEDS ORDERED: LISINOPRIL5 MG PO (15:34)
[2020-08-14] MEDS ORDERED: TOPROL XL25 M1 PO (15:37)
[2020-08-14] MEDS ORDERED: MIDODRINE5 MG PO (15:41)
[2020-08-14] MEDS ORDERED: MULTI VIT PO (15:42)
[2020-08-14] MEDS ORDERED: NITROGLYCERIN0.4 MG SL (15:43)
[2020-08-14] MEDS ORDERED: PROTONIX40 M2 PO (15:48)
[2020-08-14] MEDS ORDERED: PERCOCET 10/31 COMBO PO (15:48)
[2020-08-14] MEDS ORDERED: POLYETHYLENE GL1 PO1 PO (15:52)
[2020-08-14] MEDS ORDERED: PREDNISONE10 M2 PO (15:53)
[2020-08-14] MEDS ORDERED: RENVELA800 MG PO (15:54)
[2020-08-14] MEDS ORDERED: VENTOLIN HFA IN (15:55)
[2020-08-14] MEDS ORDERED: B-1100 MG PO (15:55)
[2020-08-14 18:07] VITALS: BP 102/53
== END 2020-08-14 18:00 | disposition short-term general hospital (02) ==
LOC: ED 13:21
PROVIDERS: Emergency Medicine
PROC: 06HY33Z Insertion of Infusion Device into Lower Vein, Percutaneous Approach (ICD-10-PCS; principal; 2020-08-14)
DX: R07.9 Chest pain, unspecified (principal); E87.70 Fluid overload, unspecified; E87.5 Hyperkalemia; E11.649 Type 2 diabetes mellitus with hypoglycemia without coma; E11.22 Type 2 diabetes mellitus with diabetic chronic kidney disease; I13.2 Hypertensive heart and chronic kidney disease with heart failure and with stage 5 chronic kidney disease, or end stage renal disease; I50.9 Heart failure, unspecified; N18.6 End stage renal disease; L89.301 Pressure ulcer of unspecified buttock, stage 1; L89.152 Pressure ulcer of sacral region, stage 2; J45.909 Unspecified asthma, uncomplicated; I67.1 Cerebral aneurysm, nonruptured; F17.210 Nicotine dependence, cigarettes, uncomplicated; Z91.15 Patient's noncompliance with renal dialysis; Z99.2 Dependence on renal dialysis; Z86.73 Personal history of transient ischemic attack (TIA), and cerebral infarction without residual deficits

== ENCOUNTER 2020-08-22 13:14 | Emergency (ER) | payer MEDICARE, OTHER ==
[~2020-08-22] VITALS: Ht 162.6 cm; Wt 118.0 kg
[~2020-08-22 13:14] MED LIST changes: +ALPRAZOLAM1 MG PO; +B-1100 MG PO; +LEVETIRACETAM500 M1 PO; +LISINOPRIL5 MG PO; +MIDODRINE5 MG PO; +MULTI VIT PO; +NITROGLYCERIN0.4 MG SL; +NORVASC2.5 M1 PO; +POLYETHYLENE GL1 PO1 PO; +PREDNISONE10 M2 PO; +PROTONIX40 M2 PO; +RENVELA800 MG PO; +TOPROL XL25 M1 PO; +VENTOLIN HFA IN
[2020-08-22 14:50] LABS: HEMATOCRIT 39.5 % (37.0-47.0); HEMOGLOBIN 11.7 g/dl (12.0-16.0); IMMATURE GRANULOCYTES 0.7 % (0.0-5.0); MEAN CELL VOLUME 95.6 fL CALC (80.0-100.0); MEAN CORPUSCULAR HGB 28.3 pG CALC (26.0-32.0); MEAN CORPUSCULAR HGB CONC 29.6 g/dL CAL (32.0-36.0); NEUT# 10.25 thou/uL (2.00-7.15); RED BLOOD COUNT 4.13 mill/uL (4.20-5.60); RED CELL DISTRI WIDTH 15.3 % (11.5-15.5)
[2020-08-22 15:07] LABS: ALBUMIN 3.9 g/dL (3.2-5.0); ALKALINE PHOSPHATASE 98 u/l (38-126); CHLORIDE 96 mmol/l (95-108); SGOT/AST 22 u/l (9-36); SODIUM 136 mmol/l (137-146); TOTAL PROTEIN 8.4 g/dL (6.3-8.2)
[2020-08-22 15:46] LABS: BUN 47 mg/dL (8-23)
[2020-08-22 15:47] LABS: ANION GAP 20 (6-22 (CALC)); BILIRUBIN, TOTAL 0.5 mg/dL (0.0-1.4); BUN/CREATININE RATIO 5 (12-20 (CALC)); CARBON DIOXIDE 25 mmol/l (22-30); GFR 4 ML/MIN (>=60 (CALC)); GFR FOR AFR.AMER. 5 ML/MIN (>=60 (CALC)); POTASSIUM 5.2 mmol/l (3.5-5.1)
[2020-08-22 15:48] LABS: MYOGLOBIN 1132 ng/mL (0 - 62)
[2020-08-22 15:49] LABS: CREATININE 9.6 mg/dL (0.5-1.0)
[2020-08-22 17:24] VITALS: BP 116/59
== END 2020-08-22 16:30 | disposition short-term general hospital (02) ==
LOC: ED 13:14
PROVIDERS: Emergency Medicine
DX: I95.9 Hypotension, unspecified (principal); E11.649 Type 2 diabetes mellitus with hypoglycemia without coma; R53.1 Weakness; Z99.81 Dependence on supplemental oxygen; E11.22 Type 2 diabetes mellitus with diabetic chronic kidney disease; I13.2 Hypertensive heart and chronic kidney disease with heart failure and with stage 5 chronic kidney disease, or end stage renal disease; I50.9 Heart failure, unspecified; N18.6 End stage renal disease; J45.909 Unspecified asthma, uncomplicated; F17.200 Nicotine dependence, unspecified, uncomplicated; Z99.2 Dependence on renal dialysis; Z86.73 Personal history of transient ischemic attack (TIA), and cerebral infarction without residual deficits
CPT/HCPCS: J1610

== ENCOUNTER 2021-11-21 09:36 | Emergency (ER) | payer MEDICARE, OTHER ==
[~2021-11-21] VITALS: Ht 162.6 cm; Wt 106.9 kg
[2021-11-21] VITALS (7 sets, daily range): BP systolic 99–116; BP diastolic 51–69
[2021-11-21 10:27] LABS: HEMATOCRIT 41.8 % (37.0-47.0); IMMATURE GRANULOCYTES 0.3 % (0.0-5.0); MEAN CELL VOLUME 95.7 fL CALC (80.0-100.0); MEAN CORPUSCULAR HGB 32.3 pG CALC (26.0-32.0); MEAN CORPUSCULAR HGB CONC 33.7 g/dL CAL (32.0-36.0); NEUT# 7.42 thou/uL (2.00-7.15); RED BLOOD COUNT 4.37 mill/uL (4.20-5.60); RED CELL DISTRI WIDTH 15.5 % (11.5-15.5)
[2021-11-21 10:39] LABS: HEMOGLOBIN 14.1 g/dl (12.0-16.0)
[2021-11-21 10:46] LABS: ALBUMIN 3.9 g/dL (3.2-5.0)
[2021-11-21 10:51] LABS: BILIRUBIN, TOTAL 1.5 mg/dL (0.0-1.4); CREATININE 7.4 mg/dL (0.5-1.0); POTASSIUM 5.3 mmol/l (3.5-5.1)
[2021-11-21] MEDS ORDERED: CEPHALEXIN500 M1 PO (11:26)
[2021-11-21] MEDS ORDERED: CITRATE OF MEGNESIA PO (11:39)
[2021-11-21] MEDS ORDERED: MIRALAX17 GM PO (11:39)
== END 2021-11-21 12:24 | disposition home or self-care (01) ==
LOC: ED 09:36
PROVIDERS: Family Medicine
DX: L03.317 Cellulitis of buttock (principal); L89.322 Pressure ulcer of left buttock, stage 2; L89.312 Pressure ulcer of right buttock, stage 2; K59.00 Constipation, unspecified; I13.2 Hypertensive heart and chronic kidney disease with heart failure and with stage 5 chronic kidney disease, or end stage renal disease; E11.22 Type 2 diabetes mellitus with diabetic chronic kidney disease; I50.9 Heart failure, unspecified; N18.6 End stage renal disease; R56.9 Unspecified convulsions; E66.01 Morbid (severe) obesity due to excess calories; Z99.2 Dependence on renal dialysis; Z86.73 Personal history of transient ischemic attack (TIA), and cerebral infarction without residual deficits; F17.200 Nicotine dependence, unspecified, uncomplicated; Z20.822 Contact with and (suspected) exposure to COVID-19

== ENCOUNTER 2021-11-22 15:00 | Emergency (ER) | payer MEDICARE, OTHER ==
[2021-11-22] VITALS (23 sets, daily range): BP systolic 66–120; BP diastolic 35–73
[~2021-11-22] VITALS: Ht 162.6 cm; Wt 114.5 kg
[~2021-11-22 15:00] MED LIST changes: +CEPHALEXIN500 M1 PO; +CITRATE OF MEGNESIA PO; +MIRALAX17 GM PO
[2021-11-22 15:46] LABS: HEMOGLOBIN 12.8 g/dl (12.0-16.0); IMMATURE GRANULOCYTES 0.2 % (0.0-5.0); MEAN CELL VOLUME 98.5 fL CALC (80.0-100.0); MEAN CORPUSCULAR HGB 32.3 pG CALC (26.0-32.0); MEAN CORPUSCULAR HGB CONC 32.8 g/dL CAL (32.0-36.0); NEUT# 7.56 thou/uL (2.00-7.15); RED BLOOD COUNT 3.96 mill/uL (4.20-5.60); RED CELL DISTRI WIDTH 15.3 % (11.5-15.5)
[2021-11-22 15:56] LABS: BILIRUBIN, TOTAL 0.9 mg/dL (0.0-1.4); TOTAL PROTEIN 8.1 g/dL (6.3-8.2)
[2021-11-22 16:13] LABS: CREATININE 4.8 mg/dL (0.5-1.0); POTASSIUM 3.7 mmol/l (3.5-5.1)
== END 2021-11-22 19:21 | disposition short-term general hospital (02) ==
LOC: ED 15:00 → ED-I 16:10 → ED 19:21
PROVIDERS: Nurse Practitioner
DX: I63.9 Cerebral infarction, unspecified (principal); R29.810 Facial weakness; R47.81 Slurred speech; R20.2 Paresthesia of skin; G83.24 Monoplegia of upper limb affecting left nondominant side; R29.713 NIHSS score 13; E11.22 Type 2 diabetes mellitus with diabetic chronic kidney disease; I13.2 Hypertensive heart and chronic kidney disease with heart failure and with stage 5 chronic kidney disease, or end stage renal disease; I50.9 Heart failure, unspecified; N18.6 End stage renal disease; J44.9 Chronic obstructive pulmonary disease, unspecified; I25.10 Atherosclerotic heart disease of native coronary artery without angina pectoris; E78.5 Hyperlipidemia, unspecified; G40.909 Epilepsy, unspecified, not intractable, without status epilepticus; Z86.73 Personal history of transient ischemic attack (TIA), and cerebral infarction without residual deficits; F17.200 Nicotine dependence, unspecified, uncomplicated; Z99.2 Dependence on renal dialysis; Z99.3 Dependence on wheelchair; Z20.822 Contact with and (suspected) exposure to COVID-19

== ENCOUNTER 2021-12-19 11:30 | Observation (INO) | payer MEDICARE, OTHER ==
[2021-12-19] VITALS (15 sets, daily range): BP systolic 104–138; BP diastolic 64–99
[~2021-12-19] VITALS: Ht 162.6 cm; Wt 97.0 kg
--- NOTE | 2021-12-19 11:30 | NUR ---
PATIENT TO ED VIA EMS
--- NOTE | 2021-12-19 12:30 | NUR ---
Reassessment of patient completed. No distress noted.
[2021-12-19 13:13] LABS: ALBUMIN 4.5 g/dL (3.2-5.0); BILIRUBIN, TOTAL 0.8 mg/dL (0.0-1.4); POTASSIUM 3.7 mmol/l (3.5-5.1); TOTAL PROTEIN 8.3 g/dL (6.3-8.2)
[2021-12-19 13:16] LABS: CREATININE 6.6 mg/dL (0.5-1.0)
--- NOTE | 2021-12-19 13:30 | NUR ---
Reassessment of patient completed. No distress noted.
[2021-12-19 13:39] LABS: HEMATOCRIT 39.2 % (37.0-47.0); HEMOGLOBIN 12.1 g/dl (12.0-16.0); IMMATURE GRANULOCYTES 0.1 % (0.0-5.0); MEAN CELL VOLUME 102.6 fL CALC (80.0-100.0); MEAN CORPUSCULAR HGB 31.7 pG CALC (26.0-32.0); MEAN CORPUSCULAR HGB CONC 30.9 g/dL CAL (32.0-36.0); NEUT# 9.26 thou/uL (2.00-7.15); RED BLOOD COUNT 3.82 mill/uL (4.20-5.60); RED CELL DISTRI WIDTH 14.8 % (11.5-15.5)
--- NOTE | 2021-12-19 14:30 | NUR ---
Reassessment of patient completed. No distress noted.
--- NOTE | 2021-12-19 15:30 | NUR ---
Reassessment of patient completed. No distress noted.
--- NOTE | 2021-12-19 16:30 | NUR ---
PT ARRIVED TO [facility] ROOM 272. PT A/OX3. RESPIRATIONS EVEN AND UNLABORED ON ROOM AIR.HEART RHYTHM NORMAL WITH TELE IN PLACE. BOWEL SOUNDS ACTIVE, LBM 12/19/21. PULSES WEAK. TRACE EDEMA NOTED. NO IV SITE PATENT. MARKETING CONTENT SPECIALIST INFORMED THAT WAS ALMA. WOUND NOTED TO BUTTOCKS. PHOTOS OBTAINED AND AQUACEL APPLIED. PT DENIES OF ANY PAINS AT THIS TIME. PT ORIENTED TO ROOM AND CALL LIGHT SYSTEM. ALL SAFTEY PRECAUTIONS ARE IN PLACE WITH CALL LIGHT IN REACH.
--- NOTE | 2021-12-19 18:26 | NUR ---
PT REQUESTING PAIN MEDICATION. KAVIN CLARK INFORMED INTERNATIONAL RECRUITER TO ADMINISTERED. VSS.
--- NOTE | 2021-12-19 18:45 | NUR ---
REPORT RECEIVED FROM ZOLTAN MCCORD.
--- NOTE | 2021-12-19 20:15 | NUR ---
PT IN BED: A&O X3. EVENA ND UNL;ABORED RESPIRATIONS; CLEAR LUNG SOUNDS UPON AUSCULTATION. TELEMETRY IN PLACE. DIALYSIS PORT RT SUBCLAVIAN NOTED. IV SITE PLACE BY ARTURO RN: #22 LF FOREARM, WITH GOOD BLOOD RETURN. ACTIVE BOWEL SOUNDS X4 QUADRANTS. TRACE EDEMA NOTED ON DEE DEE LOWER EXTREMITIES. SAFETY PRECAUTIONS IN PLACE WITH CALL LIGHT IN REACH.
--- NOTE | 2021-12-19 20:41 | NUR ---
PRE-DIALYSIS NOTE: PT ARRIVES VIA BED, ACCOMPANIED BY Rodrigo REBOLLEDO CNA. VERBAL REPORT RECEIVED AND WRITTEN HAND OFF RECEIVED. CARE OF PT ASSUMED AT THIS TIME FOR HEMODIALYSIS TREATMENT. CONSENT HAS BEEN OBTAINED AND SIGNED BY PHYSICIAN. TREATMENT ORDERS OBTAINED FROM DR. GRIFFITH. EDUCATION PROVIDED VERBALLY, ALLOWING TIME FOR PT TO ASK ANY QUESTIONS. PT VERBALIZES UNDERSTANDING AND DENIES FURTHER QUESTIONS. LABS REVIEWED. WEIGHT: 98KG VS: 93/53mmHg 69bpm 96SPO2 20RR/MIN 97.2 F HD ACCESS: LEFT SUBCLAVIAN CVC, ACCESSED PER POLICY UNDER ASEPTIC TECHNIQUE. FLUSHES EASILY WITH GOOD BLOOD RETURN. SITE FREE FROM S/S OF INFECTION. HEMODIALYSIS TREATMENT INITIATED AT 2040 WITHOUT DIFFICULTY OR COMPLICATION. PT TOLERATED PROCEDURE WELL. WILL REMAIN WITH PT FOR MONITORING. TABLO SERIAL #[id number] DIALYZER OPTIFLUX [id number] LOT #[id number] CARTRIDGE LOT # [id number] PH 7.5 COND. EXP. 14 COND. ACT. 14.2 WATER TEMP 75 F ASSESMENT: PT A/OX3, PLEASANT AND COOPERATIVE. NO APPARENT DISTRESS. VOICES NO COMPLAINTS. RESPIRATIONS REGULAR AND UNLABORED. NSR ON TELEMETRY. TRACE EDEMA TO BLE. LUNGS CLEAR.
--- NOTE | 2021-12-19 22:15 | NUR ---
2155 NIBP 76/41mmHg 2205 FLUID REMOVAL HELD AND REMOVAL GOAL RE-ADJUSTED TO 500ML, ALBUMIN ADMINISTERED, SEE EMAR. 2215 NIBP 109/59mmHg SEE TABLO TREATMENT FLOW SHEET FOR FURTHER HEMODYNAMIC DATA.
--- NOTE | 2021-12-19 23:00 | NUR ---
POST DIALYSIS NOTE: DIALYSIS TREATMENT COMPLETED AT 2300, BLOOD RETURNED, 500 ML OF FLUID REMOVED. TREATMENT DURATION 2 HOURS. PT TOLERATED TREATMENT WELL AND WITHOUT INCIDENT. POST DIALYSIS WEIGHT: 97.5 VS:101/60mmHg 71bpm 96SPO2 20RR/MIN 97.3F ASSESMENT: PHYSICAL EXAM GROSSLY UNCHANGED FROM PRE-HD BASELINE. ACCESS:L-CVC DE-ACCESSED, FLUSHED AND HEPARIN LOCKED PER POLICY PRESCRIBED. PT RTETURNS TO ROOM VIA BED ACCOMPANIED BY Rodrigo REBOLLEDO CNA. VERBAL REPORT AND WRITTEN HAND-OFF PROVIDED TO PRIMARY NURSE Mina OLEARY LPN. CARE OF PT RELINQUISHED AT THIS TIME.
--- NOTE | 2021-12-19 23:10 | NUR ---
PT BACK FROM DIALYSIS, ACCOMPANIED BY CASI.
[2021-12-20] VITALS (10 sets, daily range): BP systolic 84–126; BP diastolic 51–64
--- NOTE | 2021-12-20 00:23 | NUR ---
PT C/O GENERALIZED PAIN, LEVEL 10/10; ADMINISTERED PAIN MED PER EMAR. SAFETY PRECAUTIONS IN PLACE WITH CALL LIGHT IN REACH.
--- NOTE | 2021-12-20 04:10 | NUR ---
PT SLEEPING. NO DISTRESS OR PAIN NOTED. TELEMETRY IN PLACE. IV SITE HEALTHY AND PATENT. SAFETY PRECAUTIONS IN PLACE WITH CALL LIGHT IN REACH.
[2021-12-20 05:58] LABS: ALBUMIN 3.7 g/dL (3.2-5.0); POTASSIUM 3.9 mmol/l (3.5-5.1)
[2021-12-20 06:10] LABS: CREATININE 4.6 mg/dL (0.5-1.0)
--- NOTE | 2021-12-20 07:40 | NUR ---
RECIEVED REPORT. PT A/OX3. RESPIRATIONS EVEN AND UNLABORED ON ROOM AIR. LUNG SOUND DIMINSHED.HEART RHYTHM NORMAL WITH TELE IN PLACE. BOWEL SOUNDS ACTIVE. #22G LFA PATENT. WOUND NOTED TO BUTTOCKS AND COCCYX NOTED. DRESSING CHANGED AT THIS TIME. WOUND CULTURE OBTAINED. PT REQUEST PAIN MEDICATIONS. ADMINISTERED PER EMAR. PT DENIES OF ANY NEEDS. ALL SAFTEY PRECAUTIONS ARE IN PLACE WITH CALL LIGHT IN REACH
--- NOTE | 2021-12-20 09:00 | NUR ---
MORNING BP MEDS HELD DUE TO LOW BP. MIDODRINE ADMINISTERED DUE TO PT BEING SYMPTOMATIC TO BP.
--- NOTE | 2021-12-20 09:40 | NUR ---
REASSESSMENT OF BP. VSS
--- NOTE | 2021-12-20 11:37 | NUR ---
CODE BROWN, VERTCAL MOVE PER POLICY. PATIENT MOVED AT 1054 INTO OR 5
--- NOTE | 2021-12-20 12:00 | NUR ---
PT RESTING IN SEMI FOWLERS POSITION. RESPIRATIONS EVEN AND UNLABORED ON ROOM AIR. TELE MONITORING IN PLACE. #22G LFA NOTED. LEFT DIALYSIS CATH REMAINS IN PLACE. DRESSING TO BUTTOCKS REMAINS CDI. PT TO BE MEDICATE PER EMAR. PT DENIES OF ANY NEEDS AT THIS TIME. ALL SAFTEY PRECAUTIONS ARE IN PLACE WITH CALL LGHT IN REACH
--- NOTE | 2021-12-20 14:22 | NUR ---
PAIN MEDICATION ADMINISTERED AT THIS TIME. VSS AT THIS TIME. PT REQUESTING ALINE. TO BE INFORMED.
--- NOTE | 2021-12-20 17:01 | NUR ---
PT RESTING IN SEMI FOWLERS POSITION. RESPIRATIONS EVEN AND UNLABORED ON ROOM AIR. #22G LFA NOTED. TELE MONITORING IN PLACE. PT DENIES OF ANY NEEDS. ALL SAFTEY PRECAUTIONS ARE IN PLACE WITH CALL LIGHT IN REACH
--- NOTE | 2021-12-20 20:00 | NUR ---
PT ALERT AND ORIENTED. FOLLOWING COMMANDS. PT BLOOD PRESSURE RUNS ON THE LOWER END. MOST RECENTLY SBP IN THE 80'S. PT REQUESTED PAIN MEDICATION. INFORMED HER THAT BLOOD PRESSURE IS LOW AT THIS TIME, WILL REASSESS AFTER GIVING HER HER SCHEDULED MIDADRINE. PT AGREED TO WAIT UNTIL HER BLOOD PRESSURE BECOMES MORE STABLE. PT BEING CLOSELY MONITORED.
[2021-12-21] VITALS (14 sets, daily range): BP systolic 66–108; BP diastolic 36–74
--- NOTE | 2021-12-21 | NUR ---
SHIFT REASSESSMENT - PT CURRENTLY RESTING. NO SIGNS OF BEING IN DISTRESS. PT BLOOD PRESSURE IMPROVED AND WAS ABLE TO RECEIVE HER PAIN MEDICATION. WILL CONTINUE TO MONITOR.
[2021-12-21 06:48] LABS: ALBUMIN 3.7 g/dL (3.2-5.0); POTASSIUM 4.6 mmol/l (3.5-5.1)
[2021-12-21 06:50] LABS: CREATININE 6.8 mg/dL (0.5-1.0)
--- NOTE | 2021-12-21 10:08 | NUR ---
REPORT RECEIVED FROM Ellie BROWN RN
--- NOTE | 2021-12-21 12:41 | NUR ---
PT A/OX3 ASSESSMENT COMPLETED. PT REQUESTED PAIN PATCH PROVIDER NOTIFIED. PT DENIES ADDITIONAL NEEDS HEART RHYTHM ON TELE. RESPIRATIONS UNLABORED. IV SITE LFA 20G NOTED ALL SAFETY PRECAUTIONS IN PLACE CALL LIGHT IN REACH.
--- NOTE | 2021-12-21 15:57 | NUR ---
PT RESTING IN LOW FOWLERS POSITIOON PT DENIES ADDITIONAL NEEDS AT THE TIME ALL SAFETY PRECAUTIONS IN PLACE.
--- NOTE | 2021-12-21 19:47 | NUR ---
MIDODRINE ADMINISTERED PRIOR TO SCHEDULED TIME. AWARE.
--- NOTE | 2021-12-21 20:56 | NUR ---
MD AWARE OF BP.
[2021-12-22] VITALS (9 sets, daily range): BP systolic 79–114; BP diastolic 45–59
[2021-12-22 04:41] LABS: HEMATOCRIT 40.1 % (37.0-47.0); HEMOGLOBIN 12.4 g/dl (12.0-16.0); MEAN CELL VOLUME 103.4 fL CALC (80.0-100.0); MEAN CORPUSCULAR HGB CONC 30.9 g/dL CAL (32.0-36.0); RED BLOOD COUNT 3.88 mill/uL (4.20-5.60); RED CELL DISTRI WIDTH 15.2 % (11.5-15.5)
--- NOTE | 2021-12-22 06:30 | NUR ---
nurse notified of patient glucose level was 70
--- NOTE | 2021-12-22 09:31 | NUR ---
pt received to ANR suite via bed for dialysis; pt offers no complaints; will continue to monitor
[2021-12-22 09:48] LABS: ALBUMIN 3.7 g/dL (3.2-5.0); POTASSIUM 4.6 mmol/l (3.5-5.1)
[2021-12-22 09:51] LABS: CREATININE 9.1 mg/dL (0.5-1.0)
--- NOTE | 2021-12-22 10:30 | NUR ---
good blood return to lt chest cvc,flushes well arterial and venous lines. labs drawn.initiated hemodialysis as ordered.
--- NOTE | 2021-12-22 10:42 | NUR ---
Intiated dialysis at this time. vss at this time.
--- NOTE | 2021-12-22 11:04 | NUR ---
pt bp 88/49 pt asymptomatic, Dr Castro notified and orders obtained. Pt given Albumin 25% 100cc. Pt tolerated well. pt updated on POC and agreeable
--- NOTE | 2021-12-22 12:07 | NUR ---
completed dialysis treatment. pt c/o cramping to bilat legs, remains slightly hypotensive, denies sob or cp. blood returned by lt chest cvc, tolerated well. pt maintained supine in bed for comnfort. heparin bolus administered as ordered. cvc dressing changed, no drainage from site, site CDI.
--- NOTE | 2021-12-22 18:45 | NUR ---
REPORT RECEIVED FROM Sindhu HUA RN
--- NOTE | 2021-12-22 21:04 | NUR ---
PATIENT ASSEMENT COMPLETED AT THIS TIME.
[2021-12-23] VITALS (9 sets, daily range): BP systolic 83–114; BP diastolic 47–68
--- NOTE | 2021-12-23 | NUR ---
PATIENT REPOSISITONED AT THIS TIME. DENIES ANY PAIN, NO APPARENT NEEDS AT THIS TIME. CALL LIGHT AND BEDSIDE TABLE WITHIN REACH.
--- NOTE | 2021-12-23 04:00 | NUR ---
PATIENT RESTING COMFORTABLY, WASHED UP AT THIS TIME. NO APPARENT NEEDS. CALL LIGHT AND BEDSIDE TABLE WITHIN REACH.
[2021-12-23 07:01] LABS: ALBUMIN 3.9 g/dL (3.2-5.0)
[2021-12-23 07:03] LABS: CREATININE 9.4 mg/dL (0.5-1.0); POTASSIUM 5.4 mmol/l (3.5-5.1)
--- NOTE | 2021-12-23 08:00 | NUR ---
PATIENT IS A/OX3, ABLE TO MAKE NEEDS, C/O PAIN 9/10 "ALL OVER", INFORMED HER ITS BEST TO WAIT BECAUSE HER BP IS LOW, HOLDING ONE OF HER BP MEDS IN ORDER FOR HER BP NOT TO DROP ANYMORE. DIMINSIHED LUNG SOUNDS ALL THROUGHOUT. ACTIVE BOWEL SOOUNDS. SOFT NON TENDER ABDOMEN. STRONG EQUAL HAND DIGITAL DESIGNER. NO ARM DRIFTS. "UNABLE TO MOVE LEGS FOR 6 YEARS" PATIENT STATED. RECIEVED DIALYSIS YESTERDAY. SAFETY MEASURES IN PLACE. CALL LIGHT IN REACH. EDUCATION GIVEN ABOUT MEDICATIONS AND CAREPLAN. WILL COTNINUE TO MONITOR PER HOSPITAL'S POLICY.
--- NOTE | 2021-12-23 09:51 | NUR ---
PT A/OX3 ASSESSMENT COMPLETED. PT STABLE AT THIS TIME. DENIES PAIN OR DISCOMFORT. RESPIRATION UNLABORES. IV SITE LFA 20 G NOTED. SAFETY AND FALL PRECAUTIONS IN PLACE. CALL LIGHT WITHIN REACH. REPORT RECEIVE FROM CATHERINE [id number]
--- NOTE | 2021-12-23 11:01 | NUR ---
PATIENT WITH SUGAR LEVEL AT 76 MG/DL ASYMPTOMATIC. GIVEN ORANGE JUICE AND A SANDWINCH. THE SUGAR LEVEL IS CHECKED AGAIN IN 20 MIN.
--- NOTE | 2021-12-23 11:43 | NUR ---
RESTING IN BED STABLE AT THIS TIME. SAFETY AND FALL PRECAUTIONS IN PLACE. CALL LIGHT WITHIN REACH.
[2021-12-23 15:08] LABS: ALBUMIN 3.5 g/dL (3.2-5.0); POTASSIUM 4.9 mmol/l (3.5-5.1)
[2021-12-23 15:21] LABS: CREATININE 9.8 mg/dL (0.5-1.0)
--- NOTE | 2021-12-23 15:52 | NUR ---
PATIENT RESTING IN BED STABLE AT THIS TIME.
[2021-12-24] VITALS (8 sets, daily range): BP systolic 91–105; BP diastolic 49–65
--- NOTE | 2021-12-24 19:27 | NUR ---
PT VITAL SIGNS WAS TAKEN, HEART RATE WAS 74. PT WAS COMFORT AND CALL LIGHT WAS WITHIN REACH.
[2021-12-25] VITALS: BP 96/63
[2021-12-25 04:00] VITALS: BP 91/46
[2021-12-25 04:13] VITALS: BP 91/46
[2021-12-25 05:46] LABS: HEMATOCRIT 39.2 % (37.0-47.0); HEMOGLOBIN 11.8 g/dl (12.0-16.0); MEAN CELL VOLUME 106.8 fL CALC (80.0-100.0); MEAN CORPUSCULAR HGB 32.2 pG CALC (26.0-32.0); MEAN CORPUSCULAR HGB CONC 30.1 g/dL CAL (32.0-36.0); RED BLOOD COUNT 3.67 mill/uL (4.20-5.60); RED CELL DISTRI WIDTH 15.2 % (11.5-15.5)
[2021-12-25 07:05] VITALS: BP 87/42
[2021-12-25 08:05] LABS: MAGNESIUM 2.1 mg/dL (1.6-2.3)
[2021-12-25 08:12] LABS: CREATININE 11.9 mg/dL (0.5-1.0); POTASSIUM 6.5 mmol/l (3.5-5.1)
--- NOTE | 2021-12-25 11:00 | NUR ---
PT AT REST IN THE BED, ALERT AND ORIENTED X 3. DIALYSIS SCHEDULED FOR TODAY.
[2021-12-25 11:27] VITALS: BP 114/70
--- NOTE | 2021-12-25 14:27 | NUR ---
Attempted treatment but pt in dialysis.
--- NOTE | 2021-12-25 16:41 | NUR ---
PT HAS BEEN AT DIALYSIS SINCE LATE THIS AM. NO CHANGE IN STATUS PRIOR TO GOING THERE.
[2021-12-25 19:44] VITALS: BP 89/47
[2021-12-26] VITALS (8 sets, daily range): BP systolic 71–128; BP diastolic 46–68
--- NOTE | 2021-12-26 05:04 | NUR ---
P[T WEIGHT 103KG
[2021-12-26 06:00] LABS: HEMOGLOBIN 12.7 g/dl (12.0-16.0); IMMATURE GRANULOCYTES 0.1 % (0.0-5.0); MEAN CELL VOLUME 102.2 fL CALC (80.0-100.0); MEAN CORPUSCULAR HGB 31.7 pG CALC (26.0-32.0); NEUT# 3.67 thou/uL (2.00-7.15); RED BLOOD COUNT 4.01 mill/uL (4.20-5.60); RED CELL DISTRI WIDTH 14.9 % (11.5-15.5)
[2021-12-26 07:15] LABS: MAGNESIUM 1.8 mg/dL (1.6-2.3)
[2021-12-26 07:19] LABS: CREATININE 8.7 mg/dL (0.5-1.0); POTASSIUM 5.1 mmol/l (3.5-5.1)
--- NOTE | 2021-12-26 09:19 | NUR ---
PT RESTING IN BED UPON ENTERING ROOM. PT STATES PAIN OF 2/10 ON BACK. TELE MONITOR IN PLACE, COTNINOUS MONTIORING PER ED. ASSESSMENT PERFORMED. BREATHING EVEN AND UNLABORED. UPDATED PT ON CURRENT PLAN OF CARE. IV OCCLUDED. REPOSTIONED PT. PT STATES NO QUESTIONS OR CONCERNS AT THIS TIME. FALL/SAFTEY PRECAUTION IN PLACE. CALL LIGHT WITHIN REACH.
--- NOTE | 2021-12-26 15:30 | NUR ---
PT FEELING ANXIOUS TOWARDS HOSPITAL STAY. MEDICATED SEE EMAR. RELAXATION TECHNIQUES PROVIDED. REPOSITONED IN BED. STATES NO OTHER NEEDS AT THIS TIME. FALL/SAFTEY PRECAUTION IN PLACE. CALL LIGHT WITHIN REACH.
--- NOTE | 2021-12-26 16:01 | NUR ---
CHELLY XIAO ESTABLISHED 22G RH.
--- NOTE | 2021-12-26 16:03 | NUR ---
Attempted treatment 2 times today am in too much pain, pain meds were going to be given, in pm she refused stating she could not get pain meds til 6 pm (it was 3pm) and she did not want to start the pain up again.
--- NOTE | 2021-12-26 18:15 | NUR ---
PT RESTING WATCHING TV. NO DISTRESS NOTED. BREATHIGN EVEN AND UNLABORED. FALL/SAFTEY PRECAUTION IN PLACE. CALL LIGHT WITHIN REACH
--- NOTE | 2021-12-26 19:08 | NUR ---
CALLED [employer] SPOKE TO KIMANI FOR PLACEMENT OF [facility] WAS GIVEN CONFIRMATION NUMBER [id number].
--- NOTE | 2021-12-26 19:43 | NUR ---
Received patient in bed awake and alert c/o soreness in her buttocks. Patient requested to be reposioned. Patient turned to right side, back supported with pillows. dressing dry and intact to buttocks.
[2021-12-27 00:03] VITALS: BP 111/60
[2021-12-27 03:56] VITALS: BP 86/46
[2021-12-27 06:16] LABS: MAGNESIUM 2.1 mg/dL (1.6-2.3)
[2021-12-27 06:34] LABS: CREATININE 10.3 mg/dL (0.5-1.0); POTASSIUM 5.9 mmol/l (3.5-5.1)
[2021-12-27 06:41] VITALS: BP 93/59
[2021-12-27 08:48] VITALS: BP 109/71
--- NOTE | 2021-12-27 09:11 | NUR ---
PT EATING BREAKFAST UPON ENTERING ROOM. REPOSTIONED IN BED 2X ASSIST TO TURN. IV PATENT/FLUSHED. TELE MONITOR IN PLACE, COTNINOUS MONITORING PER ED. DRESSING IS CDI TO BUTTOCK. DAILY WEIGHT: 96.6. GLUCOSE CHECK: 97. UPDATED PT ON CURRENT PLAN OF CARE. PT COMPLAINS OF 10/10 PAIN IN COCCYX AREA. MEDICATED SEE EMAR. FALL/SAFTEY PRECAUTION IN PLACE, CALL LIGHT WITHIN REACH
[2021-12-27 10:32] VITALS: BP 101/55
--- NOTE | 2021-12-27 11:15 | NUR ---
DRESSING CHANGED. PT TOLERATED WELL. BREATHING EVEN AND UNLABORED. FALL/SAFTEY PRECAUTION IN PLACE. CALL LIGHT WITHIN REACH.
--- NOTE | 2021-12-27 14:07 | NUR ---
PT AT DIALYSIS TREATMENT
--- NOTE | 2021-12-27 16:54 | NUR ---
PT IN DIALYSIS TREATMENT
--- NOTE | 2021-12-27 17:15 | NUR ---
DIALYSIS NOTE START TIME:1349END TIME:1711 TIME COMPLETED: 3 HOURS FLUID REMOVED: 2000ML PRE TX WEIGHT: 103KG POST TX WEIGHT: 101KG TABLO SERIAL #[id number] PH: 7.4WATER TEMP: 77.5F DIALYZER: OPTIFLUX 200NR LOT#[id number] CARTRIDGE LOT# [id number] INFORMED CONSENT SIGNED BY PATIENT, DR. HUGO, WITNESSED BY Alirio BROWN RN EDUCATION PROVIDED, ASSESMENT COMPLETED, LABS REVIEWED. ORDERS OBTAINED FROM DR. HUGO. HEMODIALYSIS ACCESS: RIGHT SUBCLAVIAN CVC, FLUSHES WELL, GOOD BLOOD RETURN. ACCESS FOR TX UNDER ASEPTIC TECHNIQUE AND HEPLOCKED POST TX PRESCRIBED PER [facility] POLICY. PT TOLERATED PROCEDURE WELL AND W/O INCIDENT, SEE TABLO TREATMENT FLOW SHEET FOR TX DETAILS AND HEMODYNAMICS. REPORT GIVEN TO Remberto BAUTISTA RN. PT RETURNED TO ROOM 272 IN BED.
--- NOTE | 2021-12-27 17:26 | NUR ---
PT ARRIVED VIA STRETCHER WITH RIPENING ROOM HAND
[2021-12-27 18:05] VITALS: BP 119/79
--- NOTE | 2021-12-27 21:33 | NUR ---
PT REFUSED TO GET BLOOD PRESSURE @1800 NURSE NOTIFIED
[2021-12-28] VITALS (7 sets, daily range): BP systolic 83–129; BP diastolic 42–66
--- NOTE | 2021-12-28 00:24 | NUR ---
PT REFUSED TO GET MIDNIGHT VITALS . NURSE NOTIFIED
--- NOTE | 2021-12-28 07:58 | NUR ---
RECIEVED REPORT. PT A/OX3. RESPIRATIONS EVEN AND UNLABORED ON ROOM AIR.LUNG SOUNDS CLEAR. HEART RHYTHM NORMAL WITH TELE IN PLACE. BOWEL SOUNDS ACTIVE,LBM 12/27/21. #22G RAC STARTED, SITE PATENT. LEFT CHEST DIALYSIS CATH NOTED. WOUNDS NOTED TO BUTTOCKS, BUTT PASTE APPLIED PER ORDER. Q2 TURNING ENFORCED WITH AIR MATRESS. PT C/O OF 10/10 PAIN IN BUTTOCKS, MEDICATED PER EMAR AND RESPOITIONED AT THIS TIME . PT DENIES OF ANY NEEDS AT THIS TIME. ALL SAFTEY PRECAUTIONS ARE IN PLACE WITH CALL LIGHT IN REACH
[2021-12-28 08:26] LABS: ALBUMIN 4.3 g/dL (3.2-5.0); CREATININE 7.3 mg/dL (0.5-1.0); POTASSIUM 5.9 mmol/l (3.5-5.1)
--- NOTE | 2021-12-28 09:00 | NUR ---
PT TOLERATED MORNING MEDICATIONS WEEL. NICOTINE PATCH APPIED TO RIGHT SHOULDER.
--- NOTE | 2021-12-28 12:02 | NUR ---
PT RESTING IN SEMI FOWLERS POSITION. RESPIRATIONS EVEN AND UNLABORED ON ROOM AIR. #22G RFA PATENT. TELE MONITORING IN PLACE. Q2H TURNING ENFORCED. XANAX ADMINISTERED PER PT REQUEST. VSS. PT DENIES OF ANY ADDITIONAL NEEDS. ALL SAFTEY PRECAUTIONS ARE IN PLACE WITH CALL LIGHT IN REACH
--- NOTE | 2021-12-28 14:25 | NUR ---
Pt resting in bed with son present. She stated she already had therapy today (OT), refusing at this time due to needing her son to take care of some things for her. She also reports being transfer to rehab tomorrow.
--- NOTE | 2021-12-28 16:22 | NUR ---
PT SLEEPING IN SEMI FOWLERS POSITION. RESPIRATIONS EVEN AND UNLABORED ON ROOM AIR. TELE MONITORING IN PLACE. #22G RAC PATENT.NO SIGNS OF ANY DISTRESS NOTED. AIR MATRESS. ALL SAFTEY PRECAUTIONS ARE IN PLACE WITH CALL LIGHT IN REACH
[2021-12-29] VITALS (7 sets, daily range): BP systolic 84–100; BP diastolic 50–64
--- NOTE | 2021-12-29 08:50 | NUR ---
PT RESTING IN BED. DRESSING APPLIED, PT TOLERATED WELL. REPOSITONED IN BED 2X ASSIST. ASSESSMENT PERFORMED. IV PATENT/FLUSHED. TELE MONITOR IN PLACE, CONTINOUS MONITORING PER ED. UPDATED PT ON CURRENT PLAN OF CARE. FALL/SAFTEY PRECAUTION IN PLACE. CALL LIGHT WITHIN REACH
--- NOTE | 2021-12-29 10:02 | NUR ---
PT IN DIALYSIS TREATMENT TRANSPORTED VIA STRETCHER WITH RN AND MANAGER DRIVE
--- NOTE | 2021-12-29 10:30 | NUR ---
nurse notified of patient glucose level was 76, patient given orange juice.
[2021-12-29] MEDS ORDERED: PERCOCET 10/31 COMBO PO (12:51)
[2021-12-29] MEDS ORDERED: AMBIEN10 MG PO (12:52)
[2021-12-29] MEDS ORDERED: ALPRAZOLAM1 MG PO (12:52)
[2021-12-29] MEDS ORDERED: LEVOFLOXACIN500MG PO (12:55)
[2021-12-29] MEDS ORDERED: ZINC OXIDE28.4 G EX (12:56)
--- NOTE | 2021-12-29 13:30 | NUR ---
DIALYSIS NOTE START TIME:955 END TIME:1320 TIME COMPLETED:3 HOURS FLUID REMOVED:900ML PRE TX WEIGHT:97KG POST TX WEIGHT:96.1KG TAB SERIAL #[id number] PH: 7.0 WATER TEMP: 82.2F DIALYZER: OPTIFLUX 200NR HEP B ANTIGEN: NEGATIVE 12/28/21HEP B ANTIBODY:REACTIVE 12/19/21 PRE TX VS: 73/46mmHgHR 71bpmT 97FRR 18/MIN POST TX VS:99/68mmHgHR 61bpmT 96.2FRR 18/MIN INFORMED CONSENT SIGNED BY PATIENT AND DR. HUGO, WITNESSED BY Alirio BROWN RN. LABS REVIEWED, ASSESMENT COMPLETED. ORDERS FOR HEMODIALYSIS OBTAINED FROM DR. HUGO. EDUCATION PROVIDED TO PATIENT. ACCESS: LEFT SUBCLAVIAN TUNNELED CVC, DOUBLE 1.5ML LUMENS, FLUSHES EASILY WITH GODD BLOOD RETURN. ACCESSED FOR HEMODIALYSIS UNDER ASEPTIC TECHNIQUE PER POLICY. HEPLOCKED WITH 1.5ML HEPARIN PER LUMEN PER ORDERS. TEGO CONNECTORS APPLIED WITH SWAB CAPS. MEDICATIONS ADMINISTERED: NACL 0.9% 1000ML X2, HEPARIN 3,000 UNITS, HEPARIN 1000 UNITS/ML 1.5ML PER LUMEN FOR HEP LOCK, ALBUMIN 25% 100ML X2 FOR HYPOTENSION. ASSESMENT: REPORT RECEIVED FROM Remberto MOORE RN, PT BROUGHT TO DIALYSIS ROOM IN BED BY ART DEPARTMENT HEAD. PT TOLERATED HEMODIALYSIS BUT DID HAVE EPISODES OF ASYMPTOMATIC HYPOTENSION REQUIRING NACL 0.9% BOLUS AND ALBUMIN BOLUS, SEE TAB TREATMENT FLOW SHEET AND EMAR. PT IS A/O X3, OFFERS NO COMPLAINT, RESPIRATIONS REGULAR AND UNLABORED, LUNGS CLEAR AND DIMISNISHED. +1 PITTING EDEMA BLE. PT ASSESMENT GROSSLY UNCHANGED POST TX. REPORT GIVEN TO Remberto MARTI RN, PT STABLE WITH NIBP OF 99/68mmHg. PT RETURNED TO ROOM IN BED BY ART DEPARTMENT HEAD.
--- NOTE | 2021-12-29 14:09 | NUR ---
PT RESTING IN BED WITH FAMILY MEMBERS AT BEDSIDE. NO DISTRESS NOTED. FALL/SAFTEY PRECAUTION IN PLACE. CALL LIGHT WITHIN REACH
--- NOTE | 2021-12-29 14:36 | NUR ---
Pt not seen today had dialysis and then being d/c
--- NOTE | 2021-12-29 17:07 | NUR ---
PT WAITING FOR TRANSPORTATION FOR REHAB PLACAMENT. BREATHING EVEN AND UNLABORED. STATES NO PAIN AT THIS TIME. REPOSTIONED. FALL SAFTEY PRECAUTION IN PLACE. CALL LIGHT WITHIN REACH.
--- NOTE | 2021-12-29 22:47 | NUR ---
IN SHIFT CHANGE REPORT, THE RN WAS TOLD THAT THE PATIENT WAS D/C AND WOULD BE TRANSPORTED TO REHAB. WHEN THE RN INQUIRED WITH ME, THE FISH NET MAKER, ABOUT THE TIMING OF TRANSPORT ARRANGEMENT, IT WAS NOTED THAT NO TRANSPORT WAS SET UP FOR THE PATIENT. [facility] STATED TO SEND THE PATIENT AT 0900 ON 12/30. INFORMED PATIENT. SHE IS COMFORTABLE RESTING IN BED FOR THE EVENING.
[2021-12-30 00:33] VITALS: BP 105/65
[2021-12-30 04:28] VITALS: BP 100/58
[2021-12-30 07:04] VITALS: BP 125/75
[2021-12-30 08:26] LABS: ALBUMIN 4.2 g/dL (3.2-5.0)
[2021-12-30 08:33] LABS: CREATININE 6.3 mg/dL (0.5-1.0); POTASSIUM 6.5 mmol/l (3.5-5.1)
--- NOTE | 2021-12-30 09:08 | NUR ---
pt laying in bed. a&o x3. no distress noted. pt updated on d.c planning with transfer to rehab. pt agreeable. nicotine patch removed, pt refusing new one to be placed at this time. nicotine patch to be returned to pharmacy. clear/diminished breath sounds upon ausucltation. active bowel sounds x4 quadrants. dialysis cath in place to rt chest, pt dialyzed 12/29. vehicle monitor technician in place. IV healthy and patent. assessment completed. discussed poc. call light within reach.
[2021-12-30 09:09] VITALS: BP 125/75
--- NOTE | 2021-12-30 09:20 | NUR ---
IV removed, intact upon removal. surveillance monitor removed and placed on nursing station desk. pt to be d/c to rehab via [facility].
--- NOTE | 2021-12-30 09:45 | NUR ---
pt d/c to rehab via [facility]. pt tolerated well. morning medications given prior to d.c.
[2022-01-01] MEDS ORDERED: OXYCODONE5 M1 PO (14:57)
--- NOTE | 2022-01-01 18:43 | NUR ---
CALLED [facility] REGARDING [employer] CREW OF AIR MATTRESS SPOKE TO PER WAS GIVEN CONFIRMATION NUMBER [id number].
== END 2021-12-30 09:45 ==
LOC: ED 11:30 → ED-I 13:45 → ED 14:09 → MS2 14:10
PROVIDERS: Family Medicine; Internal Medicine Nephrology; Nurse Practitioner; ADMIT Internal Medicine; ATTEND Internal Medicine
PROC: 5A1D70Z Performance of Urinary Filtration, Intermittent, Less than 6 Hours Per Day (ICD-10-PCS; principal; 2021-12-19)
PROC: 5A1D70Z Performance of Urinary Filtration, Intermittent, Less than 6 Hours Per Day (ICD-10-PCS; 2021-12-22)
PROC: 5A1D70Z Performance of Urinary Filtration, Intermittent, Less than 6 Hours Per Day (ICD-10-PCS; 2021-12-25)
PROC: 5A1D70Z Performance of Urinary Filtration, Intermittent, Less than 6 Hours Per Day (ICD-10-PCS; 2021-12-27)
PROC: 5A1D70Z Performance of Urinary Filtration, Intermittent, Less than 6 Hours Per Day (ICD-10-PCS; 2021-12-29)
DX: I13.2 Hypertensive heart and chronic kidney disease with heart failure and with stage 5 chronic kidney disease, or end stage renal disease (principal); E11.22 Type 2 diabetes mellitus with diabetic chronic kidney disease; N18.6 End stage renal disease; I50.9 Heart failure, unspecified; Z99.2 Dependence on renal dialysis; D63.1 Anemia in chronic kidney disease; N25.81 Secondary hyperparathyroidism of renal origin; E87.5 Hyperkalemia; L89.321 Pressure ulcer of left buttock, stage 1; L89.312 Pressure ulcer of right buttock, stage 2; J44.9 Chronic obstructive pulmonary disease, unspecified; G89.4 Chronic pain syndrome; G47.00 Insomnia, unspecified; I95.9 Hypotension, unspecified; G40.909 Epilepsy, unspecified, not intractable, without status epilepticus; B96.5 Pseudomonas (aeruginosa) (mallei) (pseudomallei) as the cause of diseases classified elsewhere; F41.9 Anxiety disorder, unspecified; F17.210 Nicotine dependence, cigarettes, uncomplicated; I69.998 Other sequelae following unspecified cerebrovascular disease; R53.81 Other malaise; Z79.52 Long term (current) use of systemic steroids; Z86.79 Personal history of other diseases of the circulatory system; Z99.81 Dependence on supplemental oxygen; Z20.822 Contact with and (suspected) exposure to COVID-19
CPT/HCPCS: J1644; P9047

== ENCOUNTER 2022-01-11 11:44 | Inpatient (IN) | payer MEDICARE, OTHER ==
[~2022-01-11] VITALS: Ht 162.6 cm; Wt 99.0 kg
[2022-01-11] VITALS (187 sets, daily range): BP systolic 48–208; BP diastolic 25–180
[~2022-01-11 11:44] MED LIST changes: +LEVOFLOXACIN500MG PO; +OXYCODONE5 M1 PO; +ZINC OXIDE28.4 G EX
--- NOTE | 2022-01-11 11:44 | NUR ---
PT IN ROOM VIA EMS
--- NOTE | 2022-01-11 12:15 | NUR ---
PT'S BP IS 51/25. DR. MURILLO NOTIFIED. PER LIDIA'S ORDER PHENYLEPHRINE 3ML WAS GIVEN BY ALFIE VALE. IO ACCESS IN RIGHT ARIAS WAS INITIATED BY FELI VALE PER DR. MURILLO ORDERS. CENTRAL LINE WAS THEN INITIATED BY DR. MURILLO. AT 1222 LEVOPHED DRIP WAS STARTED.
--- NOTE | 2022-01-11 12:20 | NUR ---
PT IS HARD TO AROUSE, CLOSES EYES IMMEDIATELY AFTER AWAKENING. BP 51/27.
[2022-01-11 13:24] LABS: HEMATOCRIT 40.6 % (37.0-47.0); IMMATURE GRANULOCYTES 0.5 % (0.0-5.0); MEAN CELL VOLUME 98.1 fL CALC (80.0-100.0); MEAN CORPUSCULAR HGB 31.4 pG CALC (26.0-32.0); NEUT# 10.92 thou/uL (2.00-7.15); RED BLOOD COUNT 4.14 mill/uL (4.20-5.60); RED CELL DISTRI WIDTH 15.4 % (11.5-15.5)
[2022-01-11 13:28] LABS: ALBUMIN 3.9 g/dL (3.2-5.0); TOTAL PROTEIN 7.5 g/dL (6.3-8.2)
[2022-01-11 13:32] LABS: BILIRUBIN, TOTAL 1.1 mg/dL (0.0-1.4); CREATININE 8.3 mg/dL (0.5-1.0); POTASSIUM 3.9 mmol/l (3.5-5.1)
--- NOTE | 2022-01-11 14:59 | NUR ---
PER DR. MURILLO'S ORDER, PT WAS GIVEN 2MG OF NARCAN. WITHIN 5 MINUTES PT WAS AWAKENING AND BECOMING MORE ALERT TO SURROUNDINGS. PT IS ABLE TO ANSWER QUESTIONS BUT HER SPEECH IS MUMBLED. PT STATES THAT SHE TOOK HER PAIN MEDICATIONS THIS MORNING.
--- NOTE | 2022-01-11 15:50 | NUR ---
PATIENT CLEANED FROM DEFECATION
--- NOTE | 2022-01-11 16:07 | NUR ---
UNABLE TO RECIEVE URINE SPECIMEN THROUGH STRAIGHT CATHETER.
--- NOTE | 2022-01-11 16:09 | NUR ---
AWAITING SECURITY TO PASSENGER ELEVATOR OPERATOR PT'S MONEY TO BE PLACED IN HOSPITAL SAFE.
--- NOTE | 2022-01-11 16:11 | NUR ---
PT WAS SOILED. PT WAS CLEANED AND REPOSITIONED.
--- NOTE | 2022-01-11 16:16 | NUR ---
PATIENT CLEANED FROM DEFECATION
--- NOTE | 2022-01-11 17:14 | NUR ---
CHECKED ON PT. NAD. PT IS SLEEPING. CALL LIGHT IS IN REACH.
--- NOTE | 2022-01-11 18:10 | NUR ---
PT ARRIVES TO ICU2 FROM THE ER, ACCOMPANIED BY NURSES ALFIE AND NIGHAT. PT IS LETHARGIC, OPENS EYES WITH STIMULATION. LEVOPHED SEEN RUNNING AT 2 MCG/MIN.
--- NOTE | 2022-01-11 18:23 | NUR ---
PT TRANSPORTED TO ICU2 WITH O2 @ 4 LITER, CPHT, LEVO DRIP, AND PERSONAL BELONGINGS. NAD. REPORT WAS GIVEN TO HENRIETTA VALE. NO CONCERNS AT THIS TIME.
--- NOTE | 2022-01-11 19:55 | NUR ---
Oxgyen saturation spot check completed 92% on 6L. Alert and oriented with no signs of distress. RN Informed
--- NOTE | 2022-01-11 20:00 | NUR ---
PT SIGNIFICANTLY DROWSY. RESPONSIVE TO VOICE AND PAIN. BLOOD PRESSURE UNSTABLE REQUIRING SIGNIFICANT TITRATION OF LEVOPHED TO MAINTAIN BLOOD PRESSURE. DUE TO PT BEING UNABLE TO REMAIN AWAKE, SHE WAS NOT ABLE TO TAKE PO MEDICATIONS. RECEIVED ASSISTANCE FROM OTHER NURSES TO TURN PT AND FOUND THAT THAT ON HER COCCYX/ENTIRE REAR END HAD A SIGNIFICANTLY LARGE ULCER. AREA IS RAW AND PAINFUL. PT INCONTIENT OF STOOL. AREA CLEANED, PHOTOS TAKEN AND BARRIER CREAM APPLIED.
--- NOTE | 2022-01-11 22:00 | NUR ---
SHIFT REASSESSMENT - PTS BLOOD PRESSURE CONTINUES TO BE UNSTABLE EVEN AT HIGH DOSES OF LEVOPHED. RATE CURRENTLY GREATER THEN 100ML/HR. CONTACTED TO FOR ADDITIONAL VASOPRESSOR. RECEIVED ORDER TO START GIVE VASSOPRESSIN. ALSO INFORMED HIM THAT PT HAS QUITE LETHARGIC AND UNABLE TO TAKE PO MEDICATIONS. PT DID NOT RECEIVE PO KEPPRA. RECEIVED ORDER TO GIVE ONE TIME ORDER OF KEPPRA 500MG IV.
[2022-01-12] VITALS (90 sets, daily range): BP systolic 31–223; BP diastolic 16–114
--- NOTE | 2022-01-12 | NUR ---
SHIFT REASSESSMENT - PTS BLOOD PRESSURE STABLE SINCE STARTING VASSOPRESSIN. LEVOPHED TITRATED DOWN. PT WAKES UP PERIODICALLY, AND RESPONDSIVE, BUT RETURNS BACK TO SLEEP IMMEDIATELY. VITAL SIGNS CURRENTLY WITHIN NORMAL LIMITS. WILL CONTINUE TO MONITOR CLOSELY.
--- NOTE | 2022-01-12 02:00 | NUR ---
SHIFT REASSESSMENT - NO CHANGE IN PT STATUS SINCE PREVIOUS ASSESSMENT. PT BEING CLOSELY MONITORED.
--- NOTE | 2022-01-12 04:00 | NUR ---
SHIFT REASSESSMENT - NO CHANGE IN PT STATUS AT THIS TIME. VITAL SIGNS ARE WITHIN NORMAL LIMITS. PT BEING CLOSELY MONITORED.
--- NOTE | 2022-01-12 06:00 | NUR ---
SHIFT REASSESSMENT - PT DSAT DOWN TO 87%. INCREASED O2 TO 10, BUT NO CHANGE. CONTACTED RT TO CONFIRM. RT REPORTS BACK THAT PT WOULD BE PLACES ON VENTI MASK. PT DROWSY BUT EASILY AROUSABLE AT THIS TIME. CONTACTED TO UPDATE. RECEIVED ORDER TO PLACE PT ON BIPAP, ABG, AND CHEST XRAY. RT INFORMED OF PHYSICIAN ORDERS.
[2022-01-12 06:12] LABS: CREATININE 9.5 mg/dL (0.5-1.0); POTASSIUM 4.8 mmol/l (3.5-5.1)
--- NOTE | 2022-01-12 06:14 | NUR ---
PER DR OTERO, PATIENT PLACED ON BIPAP, TOLERATING WELL AT THIS TIME.
--- NOTE | 2022-01-12 07:56 | NUR ---
PATIENT IS A/O ABLE TO MAKE NEEDS KNOWN TO STAFF. C/O ON HER BUTTOCKS. OPEN WOUNDS ON HER COCCYX, INNER THIGHS, UPPER BACK OF HER THIGHS, PICTURES ARE TAKEN BUT NO INK IN PRINTER, WAITING ON THE INK TO PRINT AND PLACE IN HER CHART. WARM DRY SKIN. WHEEZING IN LUNGS. ACTIVE BOWEL SOUNDS. SOFT NON TENDER ABDOMEN. NO TRACE EDEMA IN BLE. STRONG PULSES. TURNED PATIENT TWICE IN ONE HOUR PER PATIENT'S REQUEST. VITALS ARE STABLE. DRIPS WILL BE TITRATED PER POLICY PRN. SAFETY MEASURES IN PLACE. CALL LIGHT IN REACH. WILL COTNINUE TO MONITOR PER HOSPITAL'S POLICY.
--- NOTE | 2022-01-12 09:53 | NUR ---
S: SIIS BARRY is a 61 F who presents with metabolic encephalopathy and metabolic acidosis. She has a history of arthritis, chicken pox/herpes, kidney disease, lung disease, metnal disorder, DM, HTN, CVA, asthma, ESRD, CHF, dialysis, brain aneurysm, chronic headaches, and sheeba seizures. All medications in patient's chart were reviewed. O: VS: BP 106/66 mmHg, P 86 bpm, RR 17 bpm,T 96.5 F W 99 kg, HT 162.56 cm, pt is on dialysis thrice weekly A: Blood culture is pending. P: Patient is on Zosyn 4.5 g IV Q12H. Vancomycin ordered for pharmacy to dose. Start Vancomycin 1750 mg IV 1x @ 1800. Vancomycin level will be drawn @ 01/15/22 @ 0500 with AM labs Vancomycin goal trough is between <10-20 mcg/ml>. Pharmacy will follow and or advise on antibiotics use as needed.
--- NOTE | 2022-01-12 14:14 | NUR ---
PATIENT IS INTUBATED.
--- NOTE | 2022-01-12 14:35 | NUR ---
Attempted evaluation Patient is being intubated We will continue to monitor and begin evaluation when she is medically stable She may benefit from TAX ACCOUNTING ASSISTANT evaluation
--- NOTE | 2022-01-12 14:45 | NUR ---
DIALYSIS INITIATED AT 1223, 962ML REMOVED, PT CONVERST TO [facility] ON MONITOR. GEORGE SANCHEZ CALLED, RESCUSCITATION EFFORTS INTITIATED, BLOOD RETURN AND DIALYSIS TX ENDED.
--- NOTE | 2022-01-12 15:15 | NUR ---
1420 PATIENT'S SON NOTIFIED. 1442 CALLED NEXT OF KIN, SON, AGAIN REQUESTING AN UPDATE ON CODE STATUS. 1458 called next of kin, . requested eta. 1501 called next of kin, , doctor claude spoke on the phone requested code status again and to get another eta. patient's son was picking up his son from school bus stop, then sttaed he would be coming in 30 mins after first call out. patients son didnt come till an hour after first call to him was made.
--- NOTE | 2022-01-12 15:15 | NUR ---
PATIENT'S DRIPPED TITRATED PER POLICY, MAXED OUT ON BOTH VASSO &LEVO DRIPS. OTHER DRIPS STARTED PER DR'S ORDERS.
--- NOTE | 2022-01-12 16:18 | NUR ---
TIME OF 1616, PER DR. MURILLO. PATIENT CODED MANY TIMES WITHIN THE LAST TWO HOURS.
--- NOTE | 2022-01-12 17:30 | NUR ---
PATIENT IS CLEANED UP, PATIENT LOOKS PRESENTABLE, SON ROYAL AND MANY FAMILY MEMBERS AT BEDSIDE, THEY HAVE NOT DECIDED ON A HOME THEY STATED "GIVE US TIME TO WRAP OUR HEADS AROUND THIS ALL, PLEASE." WILL INFORM NIGHT NURSE.
--- NOTE | 2022-01-12 19:05 | NUR ---
[facility] CONTACTED FROM THE [place] [facility]ICE DUE TO THE [facility]'S OFFICE NUMBER NOT IN SERVICE. NIGHT NURSE IS AWARE
--- NOTE | 2022-01-12 20:00 | NUR ---
RECEIVED CALL FROM [facility] IN [place]. INFORMED THAT THEIR ETA WILL BE WITHIN THE HOUR. FAMILY REMAINS AT BEDSIDE WITH PT AT THIS TIME.
== END 2022-01-12 21:07 | disposition expired | DRG 871 ==
LOC: ED 11:44 → ED-I 13:09 → ED 13:09 → ED-I 15:59 → ED 16:35 → ICU 16:36
PROVIDERS: Family Medicine; ADMIT Internal Medicine; ATTEND Internal Medicine
PROC: 06HY33Z Insertion of Infusion Device into Lower Vein, Percutaneous Approach (ICD-10-PCS; principal; 2022-01-11)
PROC: 3E043XZ Introduction of Vasopressor into Central Vein, Percutaneous Approach (ICD-10-PCS; 2022-01-11)
PROC: 5A1D70Z Performance of Urinary Filtration, Intermittent, Less than 6 Hours Per Day (ICD-10-PCS; 2022-01-12)
PROC: 5A09357 Assistance with Respiratory Ventilation, Less than 24 Consecutive Hours, Continuous Positive Airway Pressure (ICD-10-PCS; 2022-01-12)
PROC: 0BH17EZ Insertion of Endotracheal Airway into Trachea, Via Natural or Artificial Opening (ICD-10-PCS; 2022-01-12)
PROC: 5A1935Z Respiratory Ventilation, Less than 24 Consecutive Hours (ICD-10-PCS; 2022-01-12)
PROC: 5A12012 Performance of Cardiac Output, Single, Manual (ICD-10-PCS; 2022-01-12)
DX: A41.9 Sepsis, unspecified organism (principal); G93.41 Metabolic encephalopathy; L89.323 Pressure ulcer of left buttock, stage 3; L89.313 Pressure ulcer of right buttock, stage 3; J96.01 Acute respiratory failure with hypoxia; N18.6 End stage renal disease; E87.20 Acidosis, unspecified; I13.2 Hypertensive heart and chronic kidney disease with heart failure and with stage 5 chronic kidney disease, or end stage renal disease; N25.81 Secondary hyperparathyroidism of renal origin; R65.20 Severe sepsis without septic shock; I49.01 Ventricular fibrillation; I95.9 Hypotension, unspecified; E11.22 Type 2 diabetes mellitus with diabetic chronic kidney disease; I50.9 Heart failure, unspecified; J44.9 Chronic obstructive pulmonary disease, unspecified; Z99.2 Dependence on renal dialysis; G89.29 Other chronic pain; D63.1 Anemia in chronic kidney disease; E66.01 Morbid (severe) obesity due to excess calories; F17.200 Nicotine dependence, unspecified, uncomplicated; Z86.79 Personal history of other diseases of the circulatory system; Z86.73 Personal history of transient ischemic attack (TIA), and cerebral infarction without residual deficits; Z20.822 Contact with and (suspected) exposure to COVID-19
CPT/HCPCS: J1644; J1953; J3370; P9047; Q9967